=== PATIENT | female | born 1935 | race Caucasian/White ===

== ENCOUNTER 2016-07-01 14:12 | Outpatient (CLI) | payer MEDICARE, OTHER | END 2016-07-01 14:13 | disposition home or self-care (01) | DX: S72.142D Displaced intertrochanteric fracture of left femur, subsequent encounter for closed fracture with routine healing (principal) ==

== ENCOUNTER 2016-07-02 12:05 | Outpatient (CLI) | payer MEDICARE, OTHER | END 2016-07-02 12:06 | disposition home or self-care (01) | DX: M17.12 Unilateral primary osteoarthritis, left knee (principal) ==

== ENCOUNTER 2017-11-05 07:15 | Outpatient (CLI) | payer MEDICARE, OTHER ==
[2017-11-05 14:13] LABS: BASOPHILS % (AUTO) 1.3 %; EOSINOPHILS % (AUTO) 2.3 %; HGB - HEMOGLOBIN 12.8 g/dL (12.0-16.0); MEAN CORPUSCULAR HEMOGLOBIN 31.8 pg (27.0-31.0); MEAN CORPUSCULAR HGB CONC 33.7 g/dL (32.0-36.0); MEAN CORPUSCULAR VOLUME 94.5 fL (81.0-99.0); MEAN PLATELET VOLUME 8.2 fL (7.9-10.8); MONOCYTES % (AUTO) 9.2 %; NEUTROPHILS % (AUTO) 68.2 %; PLT - PLATELET COUNT 178 10^3/uL (130-450); RED BLOOD COUNT 4.04 10^6/uL (4.20-5.40); RED CELL DISTRIBUTION WIDTH 13.4 % (12.0-15.0); WHITE BLOOD COUNT 5.5 x10^3/uL (4.8-10.8)
[2017-11-05 14:15] LABS: ABNORMAL LYMPHS % (MANUAL) 0 %; BAND NEUTROPHILS % (MANUAL) 0 %
[2017-11-05 14:26] LABS: ALBUMIN 3.9 g/dL (3.2-5.5); ALBUMIN/GLOBULIN RATIO 1.4 (1.0-2.2); ALKALINE PHOSPHATASE 52 IU/L (42-121); ALT ALANINE AMINOTRANSFERASE 15 IU/L (10-60); AST ASPARTATE AMINOTRANSFERASE 19 IU/L (10-42); BILIRUBIN,TOTAL 0.8 mg/dL (0.2-1.0); BUN - BLOOD UREA NITROGEN 15 mg/dL (6-20); CALCIUM 9.1 mg/dL (8.5-10.3); CARBON DIOXIDE - CO2 26 mmol/L (21-32); CHLORIDE 108 mmol/L (101-111); CHOL/HDL RATIO 2.4 (<4.4); CHOLESTEROL 144 mg/dL; CREATININE 0.5 mg/dL (0.4-1.0); GFR - MDRD 118 (>89); GLUCOSE 84 mg/dL (70-100); HDL CHOLESTEROL 60 mg/dL; LDL CHOLESTEROL,CALCULATED 74 mg/dL; LDL/HDL RATIO 1.2 (<4.4); SODIUM 140 mmol/L (135-145); TOTAL PROTEIN 6.7 g/dL (6.7-8.2); VLDL CHOLESTEROL 10 mg/dL
[2017-11-05 14:49] LABS: BASOPHILS # (MANUAL) 0.1 10^3/uL (0-0.1); BASOPHILS % (MANUAL) 2 %; EOSINOPHILS # (MANUAL) 0.1 10^3/uL (0-0.7); LYMPHOCYTES # (MANUAL) 0.7 10^3/uL (1.5-3.5); LYMPHOCYTES % (MANUAL) 12 %; MONOCYTES # (MANUAL) 0.6 10^3/uL (0.0-1.0); NEUTROPHILS # (MANUAL) 4.1 10^3/uL (1.5-6.6); NEUTROPHILS % (MANUAL) 74 %
[2017-11-05 14:50] LABS: DIFFERENTIAL COMMENT MANUAL DIFFERENTIAL; PLATELET ESTIMATE, MANUAL NORMAL (130-450,000) (NORMAL); PLATELET MORPHOLOGY NORMAL APPEARANCE (NORMAL); RBC MORPHOLOGY (MULTIPLE) NORMAL APPEARANCE (NORMAL)
== END 2017-11-05 07:16 | disposition home or self-care (01) ==
LOC: LAB.WCP 07:15
PROVIDERS: ATTEND Family Medicine
DX: I10 Essential (primary) hypertension (principal); E55.9 Vitamin D deficiency, unspecified; E78.5 Hyperlipidemia, unspecified; E03.9 Hypothyroidism, unspecified; F32.9 Major depressive disorder, single episode, unspecified
CPT/HCPCS: 36415; 80053; 80061; 82306; 83721; 84443; 85025

== ENCOUNTER 2017-11-19 08:04 | Outpatient (CLI) | payer MEDICARE, OTHER ==
--- NOTE | 2017-11-19 16:35 | DEXA Report ---
Procedure Date: 11/19/2017 Accession Number: [id number] / [id number] Procedure: DEX - Dexa Spine and/or Hip CPT Code: FULL RESULT: EXAM: Dexa Spine and/or Hip DATE: 11/19/2017 8:50 AM CLINICAL HISTORY: BONE DISORDER,OSTEOPOROSIS TECHNIQUE: Dual energy x-ray absorptiometry (DXA) was performed on a [employer] System. Regions measured are the AP Spine, femoral neck, and if needed forearm. COMPARISON: 12/09/2015. In accordance with the International Society for Clinical Densitometry (ISCD) guidelines, data from previous exams may be reanalyzed using current recommendations and techniques. This is done to allow a more accurate basis for comparison with the current study. FINDINGS: The data for the lumbar spine is as follows: BMD (g/cm/cm) T-SCORE Z-SCORE REGION L1 0.851 -2.3 -0.1 L2 0.974 -1.9 0.3 L3 1.081 -1.0 1.2 L4 1.084 -1.0 1.2 TOTAL 1.011 -1.4 0.8 NOTE: All evaluable vertebrae are used for classification The data for the hip is as follows: BMD (g/cm/cm) T-SCORE Z-SCORE REGION Neck 0.650 -2.8 -0.3 TOTAL 0.596 -3.3 -0.8 NOTE: The femoral neck or total proximal femur, whichever is lowest, is used for classification. DXA RESULTS SUMMARY: Spine SCAN DATE AGE BMD CHANGE VS CHANGE VS PREVIOUS PREVIOUS % 9/19/2017 [age] 1.011 -0.050* -4.7* 12/09/2015 [age] 1[age]061 * Denotes significant change at the 95% confidence level. Denotes dissimilar scan types or analysis methods. DXA RESULTS SUMMARY: Hip SCAN DATE AGE BMD CHANGE VS CHANGE VS PREVIOUS PREVIOUS % [birth year][age]19[birth year]2017 82.4 0.596 -0.008 -1.3 12/09[birth year]2015 [age] 0[age]604 * Denotes significant change at the 95% confidence level. Denotes dissimilar scan types or analysis methods. IMPRESSION: THE WHO CLASSIFICATION BASED ON THE INTERNATIONAL REFERENCE STANDARD IS OSTEOPOROSIS. THE FRACTURE RISK IS HIGH. RECOMMENDATION: Patients with diagnosis of osteoporosis or osteopenia should have regular bone mineral density assessment. For those eligible for Medicare, routine testing is allowed once every 2 years. Testing frequency can be increased for patients who have rapidly progressing disease or for those who are receiving medical therapy to restore bone mass. COMMENT: World Health Organization (WHO) definitions for osteoporosis and osteopenia: NORMAL BMD: T-score at -1.0 or higher, fracture risk is low OSTEOPENIA BMD: T-score between -1.0 and -2.5, fracture risk is increased. OSTEOPOROSIS BMD: T-score at -2.5 or lower, fracture risk is high. National Osteoporosis Foundation recommends: 1. Obtain adequate dietary calcium (at least 1200 mg per day) and vitamin D (400-800 international units per day). 2. Participate, as appropriate, in regular weightbearing and muscle-strengthening exercise. 3. Avoid tobacco use and reduce alcohol and caffeine intake. 4. For more detailed information see the website at www.NOF.org.
== END 2017-11-19 08:05 | disposition home or self-care (01) ==
LOC: DI 08:04
PROVIDERS: ATTEND Family Medicine
DX: M81.0 Age-related osteoporosis without current pathological fracture (principal); M89.9 Disorder of bone, unspecified
CPT/HCPCS: 77080

== ENCOUNTER 2018-10-19 08:00 | Outpatient (CLI) | payer MEDICARE, OTHER ==
[2018-10-19 12:25] LABS: BASOPHILS # (AUTO) 0.1 10^3/uL (0.0-0.1); BASOPHILS % (AUTO) 0.8 %; EOSINOPHILS # (AUTO) 0.1 10^3/uL (0.0-0.7); EOSINOPHILS % (AUTO) 1.9 %; HGB - HEMOGLOBIN 12.2 g/dL (12.0-16.0); LYMPHOCYTES # (AUTO) 1.2 10^3/uL (1.5-3.5); LYMPHOCYTES % (AUTO) 18.5 %; MEAN CORPUSCULAR HGB CONC 31.9 g/dL (32.0-36.0); MEAN PLATELET VOLUME 10.1 fL (7.9-10.8); MONOCYTES # (AUTO) 0.6 10^3/uL (0.0-1.0); MONOCYTES % (AUTO) 9.3 %; NEUTROPHILS # (AUTO) 4.4 10^3/uL (1.5-6.6); NEUTROPHILS % (AUTO) 69.2 %; PLT - PLATELET COUNT 177 10^3/uL (130-450); RED BLOOD COUNT 3.94 10^6/uL (4.20-5.40); RED CELL DISTRIBUTION WIDTH 13.2 % (12.0-15.0); WHITE BLOOD COUNT 6.4 x10^3/uL (4.8-10.8)
[2018-10-19 12:53] LABS: CHLORIDE 109 mmol/L (101-111); SODIUM 140 mmol/L (135-145)
[2018-10-19 12:54] LABS: ALBUMIN 3.8 g/dL (3.2-5.5); ALBUMIN/GLOBULIN RATIO 1.2 (1.0-2.2); ALKALINE PHOSPHATASE 63 IU/L (42-121); ALT ALANINE AMINOTRANSFERASE 15 IU/L (10-60); AST ASPARTATE AMINOTRANSFERASE 17 IU/L (10-42); BILIRUBIN,TOTAL 0.6 mg/dL (0.2-1.0); BUN - BLOOD UREA NITROGEN 17 mg/dL (6-20); CALCIUM 9.7 mg/dL (8.5-10.3); CARBON DIOXIDE - CO2 23 mmol/L (21-32); CHOL/HDL RATIO 2.5 (<4.4); CHOLESTEROL 130 mg/dL; CREATININE 0.5 mg/dL (0.4-1.0); GFR - MDRD 117 (>89); GLUCOSE 98 mg/dL (70-100); HDL CHOLESTEROL 53 mg/dL; LDL CHOLESTEROL,CALCULATED 61 mg/dL; LDL/HDL RATIO 1.2 (<4.4); TOTAL PROTEIN 6.9 g/dL (6.7-8.2); VLDL CHOLESTEROL 16 mg/dL
== END 2018-10-19 08:01 | disposition home or self-care (01) ==
LOC: LAB.WCP 08:00
PROVIDERS: ATTEND Family Medicine
DX: I10 Essential (primary) hypertension (principal); E78.5 Hyperlipidemia, unspecified; E03.9 Hypothyroidism, unspecified
CPT/HCPCS: 36415; 80053; 80061; 83721; 84443; 85025

== ENCOUNTER 2019-04-14 11:47 | Emergency (ER) | payer MEDICARE, OTHER ==
--- NOTE | 2019-04-14 13:56 | XRAY Report ---
Reason: fall, R hip pain Procedure Date: 04/14/2019 Accession Number: [id number] / [id number] Procedure: XR - Hip w/Pelvis 2-3V RT CPT Code: Addended Final Report FULL RESULT: EXAM: RIGHT HIP RADIOGRAPHY EXAM DATE: 04/14/2019 01:33 PM. CLINICAL HISTORY: Fall, right hip pain. COMPARISON: HIP W/PELVIS 2-3V LT 07/01/2016 2:25 PM. TECHNIQUE: 2 views. FINDINGS: Bones: The bones are qualitatively osteopenic; this limits evaluation for underlying fractures or masses. Within these limitations, no convincing fracture is identified. Evaluation of the femoral neck is further limited by positioning. Joints: Interval left total hip arthroplasty, partially visualized. No dislocation on the right. Soft Tissues: Prominent stool burden seen projecting over the pelvis. IMPRESSION: Limited exam due to osteopenia and positioning with no convincing fracture identified. Constipation. RADIA ADDENDUM: 04/14/19 14:49 There are fractures of the right superior and inferior pubic rami, new compared to 2017, and likely acute. CRITICAL RESULT: The findings were discussed with Dr. Bauer on 04/14/2019 at 12:47 PM.
--- NOTE | 2019-04-14 14:17 | ED Physician Documentation ---
History of Present Illness - Stated complaint Stated Complaint: R LEG PAIN FROM FALL - Chief complaint Chief Complaint: Ext Problem - History obtained from History obtained from: Patient - History of Present Illness Timing: Yesterday Pain level max: 5 Pain level now: 5 - Additonal information Additional information: 83-year-old female presents to the emergency department after a trip and fall last night. She states that she is having pain in her left wrist and right hip. The pain in the right hip is only with ambulation. Left wrist is worse with movement and better with rest. No head injury. No neck or back pain. No headache. No loss of consciousness. No focal neurological deficits. 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 Cardiovascular: Pacemaker HEENT: Cataracts, Tonsil/Adenoidectomy - Present Medications Home Medications: Ambulatory Orders Medication Instructions Recorded Confirmed Aspirin [Aspir 81] 81 mg PO QPM 03/25/15 08/30/15 Carvedilol 6.25 mg PO BID 03/25/15 08/30/15 Levothyroxine [Synthroid] 100 mcg PO DAILY 03/25/15 08/30/15 Calcium Carbonate [Calcium] 600 mg PO BID 03/26/15 08/30/15 Clopidogrel [Plavix] 75 mg PO DAILY 08/30/15 09/01/15 Acetaminophen/Cod 300/30 [Tylenol 1 - 2 tab PO QID MDD PAIN 09/01/15 09/01/15 #3] Alendronate [Fosamax] 70 mg PO Q7D 09/01/15 09/01/15 Atorvastatin Calcium 10 mg PO QPM 09/01/15 09/01/15 Fluticasone [Flonase] 1 sprays LINDY BID 09/01/15 09/01/15 - Allergies Allergies/Adverse Reactions: Allergies Allergy/AdvReac Type Severity Reaction Status Date / Time meperidine HCl * Allergy Unknown Verified 03/25/15 19:21 [From Demerol] Penicillins Allergy Unknown Verified 03/25/15 19:21 Sulfa (Sulfonamide Allergy Unknown Verified 03/25/15 19:20 Antibiotics) fragrences Allergy Unknown Uncoded 03/25/15 19:21 - Social History Does the pt smoke?: No Smoking Status: Never smoker Does the pt drink ETOH?: Yes Does the pt have substance abuse?: No PD ED PE NORMAL - Vitals Vital signs reviewed: Yes - General General: Alert and oriented X 3, No acute distress, Well developed/nourished - HEENT HEENT: Atraumatic, PERRL, Moist mucous membranes - Neck Neck: Supple, no meningeal sign, No bony TTP - Cardiac Cardiac: RRR, Strong equal pulses - Respiratory Respiratory: No respiratory distress, Clear bilaterally - Abdomen Abdomen: Soft, Non tender, Non distended - Back Back: No spinal TTP - Derm Derm: Warm and dry - Extremities Extremities: Other (Tender palpation over the right hip. Pain with internal rotation. No shortening. Neurovascular intact. Also tender to palpation over the dorsum of the left wrist with mild ecchymosis and swelling. Neurovascular intact.) - Neuro Neuro: Alert and oriented X 3 - Psych Psych: Normal mood, Normal affect Results - Vitals Vitals: Vital Signs - 24 hr 04/14/19 04/14/19 12:07 15:08 Temperature 36.6 C 36.9 C Heart Rate 75 81 Respiratory 18 16 Rate Blood Pressure 107/69 113/82 H O2 Saturation 99 99 Oxygen O2 Source [With Activity] Room air O2 Source [Without Activity] Room air O2 Source Room air - Rads (name of study) R hip xray Radiology: Prelim report reviewed, EMP read contemporaneously, See rad report (There are fractures of the right superior and inferior pubic rami, new compared to 2017, and likely acute. ) L wrist xray Radiology: Prelim report reviewed, EMP read contemporaneously, See rad report (Advanced degenerative changes of the first carpometacarpal articulation with question of acute injury in this region. Please correlate for focal tenderness at the base of the thumb. ) PD MEDICAL DECISION MAKING - ED course Complexity details: reviewed results, re-evaluated patient, considered differential, d/w patient ED course: 83-year-old female presents to the emergency department after a fall. She has a right superior and inferior pubic rami fracture. No acute fractures on wrist x- ray. Using the wrist well. Placed in a Velcro splint for this. She will utilize a walker for home. The pubic ramus fractures are nonoperative. We will have her follow-up with her doctor and orthopedics for further evaluation. Patient states that she has pain medication for home. Patient and family counseled regarding signs and symptoms for which I believe and urgent re- evaluation would be necessary. Patient with good understanding of and agreement to plan and is comfortable going home at this time This document was made in part using voice recognition software. While efforts are made to proofread this document, sound alike and grammatical errors may occur. Departure - Departure Disposition: 01 Home, Self Care Clinical Impression: Contusion of left wrist Qualifiers: Encounter type: initial encounter Qualified Code(s): S60.212A - Contusion of left wrist, initial encounter Fracture of pubic ramus Qualifiers: Encounter type: initial encounter Fracture type: closed Laterality: right Qualified Code(s): S32.591A - Other specified fracture of right pubis, initial encounter for closed fracture Condition: Good Instructions: ED Contusion Upper Ext, ED Fx Pelvis Follow-Up: Denice Ring DO [Primary Care Provider] - [facility] [Provider Group] - Within 1 week Comments: Return if you worsen. Follow-up with your doctor for further care. You have a pubic ramus fracture on the right. You need to use her walker at all times to help you get around at home. Discharge Date/Time: 04/14/19 15:19
--- NOTE | 2019-04-14 14:46 | XRAY Report ---
Reason: fall, wrist pain Procedure Date: 04/14/2019 Accession Number: [id number] / [id number] Procedure: XR - Wrist 4 View LT CPT Code: Final Report FULL RESULT: EXAM: LEFT WRIST RADIOGRAPHY EXAM DATE: 04/14/2019 02:31 PM. CLINICAL HISTORY: Fall, wrist pain. COMPARISON: HAND 2 VIEW BILAT 04/13/2018 11:35 AM. TECHNIQUE: 4 views. FINDINGS: Bones: The bones are qualitatively osteopenic; this limits evaluation for underlying fractures or masses. There is an apparent cortical step-off along the medial aspect of the base of the first metacarpal, fracture of the base of the first metacarpal near the advanced degenerative changes would be difficult to exclude. No other fracture is seen. Joints: Advanced degenerative changes of the first carpometacarpal articulation are noted. Soft Tissues: Normal. No soft tissue swelling. IMPRESSION: Advanced degenerative changes of the first carpometacarpal articulation with question of acute injury in this region. Please correlate for focal tenderness at the base of the thumb. RADIA
[2019-04-14 15:11] VITALS: BP 113/82
== END 2019-04-14 15:19 | disposition home or self-care (01) ==
LOC: ED 11:47
DX: S32.511A Fracture of superior rim of right pubis, initial encounter for closed fracture (principal); S32.591A Other specified fracture of right pubis, initial encounter for closed fracture; S60.212A Contusion of left wrist, initial encounter; W01.0XXA Fall on same level from slipping, tripping and stumbling without subsequent striking against object, initial encounter; I10 Essential (primary) hypertension
CPT/HCPCS: 99284

== ENCOUNTER 2019-10-03 18:36 | Outpatient (CLI) | payer MEDICARE, OTHER | END 2019-10-03 18:37 | disposition critical access hospital (66) | LOC: EMS 18:36 | PROVIDERS: ATTEND Surgery | DX: M25.511 Pain in right shoulder (principal); M25.551 Pain in right hip; W18.39XA Other fall on same level, initial encounter; Y92.000 Kitchen of unspecified non-institutional (private) residence as the place of occurrence of the external cause | CPT/HCPCS: A0425; A0429 ==

== ENCOUNTER 2019-10-03 18:57 | Inpatient (IN) | payer MEDICARE, OTHER ==
[2019-10-03] MEDS ORDERED: MORPHINE 2 MG/ML CARPUJECT IVP STA ×2 (19:05→19:58)
--- NOTE | 2019-10-03 19:08 | ED Physician Documentation ---
PD HPI LOWER EXT INJURY - Stated complaint Stated Complaint: GLF - History obtained from History obtained from: Patient - History of Present Illness PD HPI LOW EXT INJURY LOCATION: Right Where injury occurred: Home Timing - onset: Today (This is a carlos 84-year-old woman with history of cardiomyopathy with an AICD in place. Reportedly had a garret EF at some point 15% but since has rebounded. She lost her balance and had a mechanical fall into a dresser and then onto her right side injuring the right arm and right hip. She was able to briefly bear weight afterwards, says the pain is not too severe. 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 Cardiovascular: Pacemaker HEENT: Cataracts, Tonsil/Adenoidectomy - Present Medications Home Medications: Ambulatory Orders Medication Instructions Recorded Confirmed Aspirin [Aspir 81] 81 mg PO QPM 03/25/15 06/30/19 Carvedilol 12.5 mg PO BID 03/25/15 06/30/19 Levothyroxine [Synthroid] 100 mcg PO DAILY 03/25/15 06/30/19 Calcium Carbonate [Calcium] 600 mg PO BID 03/26/15 06/30/19 Clopidogrel [Plavix] 75 mg PO DAILY 08/30/15 06/30/19 Acetaminophen/Cod 300/30 [Tylenol 1 - 2 tab PO QID MDD PAIN 09/01/15 06/30/19 #3] Alendronate [Fosamax] 70 mg PO Q7D 09/01/15 06/30/19 Atorvastatin Calcium 10 mg PO QPM 09/01/15 06/30/19 Fluticasone [Flonase] 1 sprays LINDY BID 09/01/15 06/30/19 Lisinopril [Zestril] 2.5 mg PO DAILY 06/30/19 06/30/19 - Allergies Allergies/Adverse Reactions: Allergies Allergy/AdvReac Type Severity Reaction Status Date / Time levofloxacin [From Levaquin] Allergy Unknown Verified 10/03/19 19:14 meperidine HCl * Allergy Unknown Verified 10/03/19 19:14 [From Demerol] Penicillins Allergy Unknown Verified 10/03/19 19:14 perfume Allergy Unknown Verified 10/03/19 20:28 Sulfa (Sulfonamide Allergy Unknown Verified 10/03/19 19:14 Antibiotics) - Social History Does the pt smoke?: No Smoking Status: Never smoker Does the pt drink ETOH?: Yes Does the pt have substance abuse?: No PD ED PE NORMAL - Vitals Vital signs reviewed: Yes - General General: Alert and oriented X 3, No acute distress - HEENT HEENT: PERRL, EOMI - Neck Neck: Supple, no meningeal sign, No bony TTP - Cardiac Cardiac: Other (Regular with frequent extrasystoles) - Respiratory Respiratory: No respiratory distress, Clear bilaterally - Abdomen Abdomen: Soft, Non tender - Back Back: No CVA TTP, No spinal TTP - Derm Derm: Normal color, Warm and dry - Extremities Extremities: Other (Right arm is tender the upper humerus but actually has pretty good range of motion. The hip is profoundly tender and shortened with externally rotated.) - Neuro Neuro: Alert and oriented X 3, Normal speech - Psych Psych: Normal mood, Normal affect Results - Vitals Vitals: Vital Signs - 24 hr 10/03/19 10/03/19 19:15 19:21 Temperature 36.5 C Heart Rate 76 71 Respiratory 18 Rate Blood Pressure 147/92 H 147/92 H O2 Saturation 100 95 Oxygen O2 Source [With Activity] Room air O2 Source [Without Activity] Room air O2 Source Room air - Labs Labs: Laboratory Tests 10/03/19 10/03/19 10/03/19 19:44 19:44 19:44 WBC 11.0 H RBC 4.17 L Hgb 12.9 Hct 39.7 MCV 95.2 MCH 30.9 MCHC 32.5 RDW 13.1 Plt Count 182 MPV 9.3 Neut # (Auto) 9.0 H Lymph # (Auto) 1.0 L [place] # (Auto) 0.8 Eos # (Auto) 0.1 Baso # (Auto) 0.1 Absolute Nucleated RBC 0.00 Nucleated RBC % 0.0 PT 12.9 H INR 1.1 Sodium 139 Potassium 3.9 Chloride 107 Carbon Dioxide 23 Anion Gap 9.0 BUN 17 Creatinine 0.5 Estimated GFR (MDRD) 117 Glucose 115 H Calcium 9.6 Total Bilirubin 0.6 AST 20 ALT 20 Alkaline Phosphatase 52 Total Protein 6.9 Albumin 4.2 Globulin 2.7 Albumin/Globulin Ratio 1.6 Lipase 41 Blood Type Antibody Screen 10/03/19 19:55 WBC RBC Hgb Hct MCV MCH MCHC RDW Plt Count MPV Neut # (Auto) Lymph # (Auto) [place] # (Auto) Eos # (Auto) Baso # (Auto) Absolute Nucleated RBC Nucleated RBC % PT INR Sodium Potassium Chloride Carbon Dioxide Anion Gap BUN Creatinine Estimated GFR (MDRD) Glucose Calcium Total Bilirubin AST ALT Alkaline Phosphatase Total Protein Albumin Globulin Albumin/Globulin Ratio Lipase Blood Type O POSITIVE Antibody Screen NEGATIVE - Rads (name of study) X-rays of the right humerus and hip Radiology: EMP read contemporaneously (Right humerus was negative, the right hip appears fractured and I actually think it is a clear fracture the radiologist was less sure) PD MEDICAL DECISION MAKING - ED course ED course: 84-year-old woman with history of cardiomyopathy although improved on more recent echoes presents after a simple ground-level fall onto her right arm and hip. She does appear to have a hip fracture on x-ray and the case was discussed by phone with Dr. Hendrix, the on-call surgeon who recommends that we have anesthesia come by and assess her preoperatively and to do a fascia iliac a block and I spoke with Benjie Lebron around 7:45 PM who will come in and see the patient. Departure - Departure Disposition: 66 [facility] DC/Xfer Clinical Impression: AICD (automatic cardioverter/defibrillator) present Closed right hip fracture Qualifiers: Encounter type: initial encounter Qualified Code(s): S72.001A - Fracture of unspecified part of neck of right femur, initial encounter for closed fracture Condition: Serious Discharge Date/Time: 10/03/19 21:58
[2019-10-03 19:56] LABS: BASOPHILS # (AUTO) 0.1 10^3/uL (0.0-0.1); BASOPHILS % (AUTO) 0.5 %; EOSINOPHILS # (AUTO) 0.1 10^3/uL (0.0-0.7); EOSINOPHILS % (AUTO) 1.3 %; HGB - HEMOGLOBIN 12.9 g/dL (12.0-16.0); LYMPHOCYTES % (AUTO) 9.5 %; MEAN CORPUSCULAR HEMOGLOBIN 30.9 pg (27.0-31.0); MEAN CORPUSCULAR HGB CONC 32.5 g/dL (32.0-36.0); MEAN CORPUSCULAR VOLUME 95.2 fL (81.0-99.0); MEAN PLATELET VOLUME 9.3 fL (7.9-10.8); MONOCYTES # (AUTO) 0.8 10^3/uL (0.0-1.0); MONOCYTES % (AUTO) 6.8 %; NEUTROPHILS % (AUTO) 81.4 %; PLT - PLATELET COUNT 182 10^3/uL (130-450); RED BLOOD COUNT 4.17 10^6/uL (4.20-5.40); RED CELL DISTRIBUTION WIDTH 13.1 % (12.0-15.0)
--- NOTE | 2019-10-03 19:57 | XRAY Report ---
PROCEDURE: Hip w/Pelvis 2-3V RT INDICATIONS: hip inj TECHNIQUE: AP pelvis with lateral view(s) of the right hip(s). COMPARISON: 04/14/2019 FINDINGS: Bones: Patient is status post prior left total hip arthroplasty. Right hip is internally rotated, whi ch limits the evaluation of right femoral neck. There is suggestion of superior migration of proximal femoral shaft in relation to femoral head concerning for a right femoral neck fracture. No evidence of avascular necrosis of right femoral head. 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 Healed superior and inferior pubic rami fractures are seen. Pelvic ring appears intac t. No suspicious bony lesions. Soft tissues: The visualized bowel gas pattern is normal. No suspicious soft tissue calcifications. IMPRESSION: 1. Limited evaluation of right femoral neck. Superior migration of femoral shaft in relation to right femoral head concerning for right femoral neck fracture. Consider CT of pelvis for further evaluatio n if indicated. 2. Old healed right superior and inferior pubic rami fracture. Reviewed by: Eddie Hopson MD on 10/03/2019 7:56 PM PDT Approved by: Eddie Hopson MD on 10/03/2019 7:56 PM PDT Station ID: [id number]
--- NOTE | 2019-10-03 19:58 | XRAY Report ---
PROCEDURE: Humerus RT INDICATIONS: arm inj TECHNIQUE: 2 views of the humerus were acquired. COMPARISON: None FINDINGS: Bones: No fractures or dislocations. No suspicious bony lesions. Soft tissues: No suspicious soft tissue calcifications. IMPRESSION: No acute humeral fracture or dislocation. Reviewed by: Eddie Hopson MD on 10/03/2019 7:57 PM PDT Approved by: Eddie Hopson MD on 10/03/2019 7:57 PM PDT Station ID: [id number]
[2019-10-03 20:11] LABS: ALBUMIN 4.2 g/dL (3.2-5.5); ALBUMIN/GLOBULIN RATIO 1.6 (1.0-2.2); BILIRUBIN,TOTAL 0.6 mg/dL (0.2-1.0); CALCIUM 9.6 mg/dL (8.5-10.3); CREATININE 0.5 mg/dL (0.4-1.0); TOTAL PROTEIN 6.9 g/dL (6.7-8.2)
[2019-10-03 20:13] LABS: INR 1.1 (0.8-1.2); PT - PROTHROMBIN TIME 12.9 secs (9.9-12.6)
[2019-10-03] MEDS ORDERED: ONDANSETRON ODT 4 MG TABLET TL PRN (20:14)
[2019-10-03] MEDS ORDERED: SODIUM CHLORIDE FLUSH 0.9% 10 ML SYRINGE IVP PRN (20:14)
[2019-10-03] MEDS ORDERED: ONDANSETRON 4 MG/2 ML VIAL IVP PRN (20:14)
[2019-10-03] MEDS ORDERED: ACETAMINOPHEN 325 MG TABLET PO PRN (20:14)
--- NOTE | 2019-10-03 20:23 | HISTORY & PHYSICAL EXAMINATION ---
Chief Complaint - Chief Complaint Chief Complaint: Right hip pain History of Present Illness - Admitted From Admitted From:: Home - History Obtained From Records Reviewed: Yes History obtained from: Patient, Daughter, EMR, ER Physician - History of Present Illness HPI Comment/Other: This is a very pleasant 84-year-old female with a past medical history significant for cardiomyopathy status post ICD placement who now has a preserved ejection fraction, hypothyroidism, history of stroke, osteoarthritis, prior history of left hip arthroplasty who presents today after having a fall at home. She states she was picking up a phone book when she fell on her right side and hit her right hip and right shoulder. He feels like her right leg gave out pr ior to her fall. She denied any syncope, chest pain, dizziness, headedness prior to the fall. The pain is located in the right groin . It is currently controlled after she received morphine in the emergency room and and a fascial illiaca block. She reports she has a history of osteoporosis and was previously on Fosamax but is now on Prolia and has had one dose. She had a prior left hip fracture and underwent intramedullary rodding with hip nail placement at our facility back in 2015. 1 year later, she had a left total hip arthroplasty at [facility]. She states that at baseline, she ambulates with a cane. She lives at home alone and is independent with her ADLs. She does not walk up a flight of stairs due to mobility issues but she reports no chest pain or dyspnea with any activity and she is able to walk across her one-story home without any problems. She has not had a stress test recently. She reports having angiograms in the past and denies a history of coronary artery disease. She denies taking Plavix but is taking 3 tablets of 81 mg aspirin a day. In the emergency department, imaging of the right hip was suggestive of a right femoral neck fracture. X-ray of the right humerus revealed no fracture. Given these findings, medicine was consulted for admission. I did discuss goals of care with the patient and her daughter and she would like to be a DNR. 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 Her father in his 50s from myocardial infarction. Living arrangement: At home Living Situation: Alone Social History Notes: She currently lives at home alone. Her a few months ago. She does not smoke or drink alcohol. 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 - POLST Patient has POLST: No Meds/Allgy - Home Medications Home Medications: Ambulatory Orders Medication Instructions Recorded Confirmed Aspirin [Aspir 81] 81 mg PO QPM 03/25/15 06/30/19 Carvedilol 12.5 mg PO BID 03/25/15 06/30/19 Levothyroxine [Synthroid] 100 mcg PO DAILY 03/25/15 06/30/19 Calcium Carbonate [Calcium] 600 mg PO BID 03/26/15 06/30/19 Clopidogrel [Plavix] 75 mg PO DAILY 08/30/15 06/30/19 Acetaminophen/Cod 300/30 [Tylenol 1 - 2 tab PO QID MDD PAIN 09/01/15 06/30/19 #3] Alendronate [Fosamax] 70 mg PO Q7D 09/01/15 06/30/19 Atorvastatin Calcium 10 mg PO QPM 09/01/15 06/30/19 Fluticasone [Flonase] 1 sprays LINDY BID 09/01/15 06/30/19 Lisinopril [Zestril] 2.5 mg PO DAILY 06/30/19 06/30/19 - Allergies Allergies/Adverse Reactions: Allergies Allergy/AdvReac Type Severity Reaction Status Date / Time levofloxacin [From Levaquin] Allergy Unknown Verified 10/03/19 19:14 meperidine HCl * Allergy Unknown Verified 10/03/19 19:14 [From Demerol] Penicillins Allergy Unknown Verified 10/03/19 19:14 perfume Allergy Unknown Verified 10/03/19 20:28 Sulfa (Sulfonamide Allergy Unknown Verified 10/03/19 19:14 Antibiotics) Review of Systems - Constitutional Constitutional: denies: Fatigue, Fever, Chills, Weakness - Ears, Nose & Throat Ears, Nose & Throat: denies: Nasal discharge, Nasal congestion, Sore throat - Cardiovascular Cariovascular: denies: Palpitations, Chest pain, Edema, Lightheadedness, Syncope, Exertional dyspnea, Decr. exercise tolerance - Respiratory Respiratory: denies: Cough, SOB at rest, SOB with exertion - Gastrointestinal Gastrointestinal: denies: Abdominal pain, Nausea, Vomiting - Genitourinary Genitourinary: denies: Dysuria, Frequency - Musculoskeletal Musculoskeletal: reports: Stiffness, Limited range of motion, Joint pain - Integumentary Integumentary: denies: Rash - Neurological Neurological: denies: General weakness, Focal weakness, Dizziness, Numbness, Memory problems - Hematologic/Lymphatic Hematologic/Lymphatic: denies: Anemia, Bleeding tendencies - All Other Systems All Other Systems: reports: Reviewed and negative Prior Level of Functionality: She lives alone and is independent with her ADLs. She ambulates with a cane at baseline. Exam - Vital Signs Reviewed Vital Signs: Yes Vital Signs: Vital Signs x48h Temp Pulse Resp BP Pulse Ox 10/03/19 19:21 71 147/92 H 95 10/03/19 19:15 36.5 C 76 18 147/92 H 100 - Physical Exam General Appearance: positive: No acute distress, Alert Eyes Bilateral: positive: Normal inspection ENT: positive: ENT inspection nml Neck: positive: Nml inspection Respiratory: positive: No respiratory distress. negative: Wheezes, Rales, Rhonchi Cardiovascular: positive: Regular rate & rhythm, No murmur. negative: Tachycardia, Bradycardia, Systolic murmur Abdomen: positive: Non-tender, No distention. negative: Tenderness, Guarding, Rebound Skin: positive: Other (No erythema over the right hip.) Extremities: positive: No pedal edema, Other (She is able to move her left lower extremity without difficulty. Movement in the right lower extremity is limited secondary to pain at the right hip. The right lower extremity is externally rotated and shortened. Pulses intact distally of the right lower extremity.) Neurologic/Psychiatric: positive: Oriented x3, Other (Sensation is decreased over the medial aspect of the right thigh otherwise grossly intact.). negative: Disoriented to person, Disoriented to place, Disoriented to time Conclusion/Plan - Problem List (1) Fracture of femoral neck, right, closed Conclusion/Plan: Concern for right femoral neck fracture on imaging after fall. She will be n.p.o. at midnight for OR tomorrow with orthopedics. We will give her heparin for DVT prophylaxis tonight. Pain control with Morphine IV and tylenol as needed. She has been typed and screened and we will monitor her for bleeding postoperatively. Hold aspirin. PT and OT will be consulted postoperatively as w ell as social work for disposition planning. Qualifiers: Encounter type: initial encounter Qualified Code(s): S72.001A - Fracture of unspecified part of neck of right femur, initial encounter for closed fracture (2) Preop cardiovascular exam Conclusion/Plan: History of cardiomyopathy with ICD in place. Her most recent echocardiogram reveals a preserved ejection fraction. There is currently no concern for anguna or heart failure. Her EKG reveals a paced rhythm. Her functional status is limited due to osteoarthritis. Given her history of cardiomyopathy, would recommend obtaining an echocardiogram preoperatively. If her ejection fraction is preserved and there is no significant valvular disease, she will be medically optimized for surgical intervention. Her Mylse perioperative risk for myocardial infarction or cardiac arrest is 0.9%. We will continue her home beta catrachita perioperatively. (3) History of cardiomyopathy Conclusion/Plan: She is a history what appears to be idiopathic cardiomyopathy with ejection fraction of 15% in the past. Most recent echocardiogram revealed a preserved ejection fraction. She is an ICD in place. She currently appears euvolemic on exam. We will check an echocardiogram preoperatively. We will continue her home medications. (4) AICD (automatic cardioverter/defibrillator) present Conclusion/Plan: EKG reveals a paced rhythm. Monitor on telemetry. (5) HTN (hypertension) Conclusion/Plan: >She is currently normotensive. We will continue her home carvedilol and lisinopril. (6) History of stroke Conclusion/Plan: She has history of stroke for which she is on aspirin and Lipitor. We will continue Lipitor but hold aspirin given the surgical intervention. (7) Hypothyroidism Conclusion/Plan: Stable. Continue Synthroid. - Lab Results Lab results reviewed: Yes Fish Bones: 10/03/19 19:44 10/03/19 19:44 - Diagnostic Imaging Results Diagnostic Imaging Results: positive: Final report reviewed - EKG Results EKG Interpreted Independently: Yes EKG Findings: EKG shows a paced rhythm which is unchanged compared to prior EKG. Core Measures - Anticipated LOS I expect patient to be DC'd or transferred within 96 hours.: Yes - Issues Hospital Issues and Management Plan: 84-year-old female with right femoral neck fracture. Will go to the OR tomorrow with orthopedics and consult PT and OT. Will hope to discharge in 2 to 3 days to skilled nurse facility. - DVT/VTE - Prophylaxis VTE/DVT Device ordered at admit?: Yes VTE/DVT Prophylaxis med ordered at admit?: Yes
[2019-10-03] MEDS ORDERED: ROPIVACAINE 0.2% PF 20ML VIAL ONE (20:47)
--- NOTE | 2019-10-03 21:26 | PROCEDURE REPORT ---
Hospitalist Procedure Note - Procedure Note Procedure Note: fascial illiaca block requested by orthopedic Dr Draper. Block done in the er. ANIMAL ATTENDANT present to assist. US guidance used. Total 40ml ropivacain 0.2% injected in small increments after each negative aspiration. Standard monitors applied for vital sign monitoring. Patient tolerated the procedure well.
--- NOTE | 2019-10-03 21:35 | HISTORY & PHYSICAL EXAMINATION ---
HPI - Admitted From Admitted from: ED - History Obtained From History obtained from: Patient Exam limitations: No limitations - History of Present Illness Severity at the worst: reports: Severe Pain Quality: reports: Sharp Timing: reports: Abrupt onset (This is an 84-year-old woman who lives at home. She is ambulatory at home and uses a walking cane usually. This afternoon she was standing, looking at a phone book, when she fell onto her right side. She states it felt like her right leg just gave way. She normally has a life alert but was not wearing it. She denies chest pain, shortness of breath, syncope or dizziness associated with the fall. She is a . She does have a sister nearby where she lives. She has had previous left hip and femur problems. About 3 to 4 years ago she had a intramedullary mamadou with hip nail inserted and this was converted about a year ago to a left total hip arthroplasty. She is mostly in indoor ambulator but does get around outside as well. She complains of right groin and right upper thigh pain. Following the fall, she was unable to bear weight but was able to slide on the floor to reach the telephone and ca ll 911. She has mild pain to her shoulder but no other complaints of pain other than the right hip and upper thigh region.) PMH/PSH - Past Medical History Cardiovascular: positive: Hypertension, High cholesterol, Other (She has a his tory of cardiomyopathy and apparently her ejection fraction has improved considerably over the past 4 to 5 years. She denies use of Plavix although her home medications suggest that she does use Plavix. 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 Cardiovascular: positive: Pacemaker HEENT: positive: Cataracts, Tonsil/Adenoidectomy Social & Family Hx - Social History Does the pt smoke?: No Smoking Status: Never smoker Does the pt drink ETOH?: Yes Does the pt have substance abuse?: No - POLST Patient has POLST: No Meds/Allgy - Home Medications Home Medications: Ambulatory Orders Medication Instructions Recorded Confirmed Aspirin [Aspir 81] 81 mg PO QPM 03/25/15 06/30/19 Carvedilol 12.5 mg PO BID 03/25/15 06/30/19 Levothyroxine [Synthroid] 100 mcg PO DAILY 03/25/15 06/30/19 Calcium Carbonate [Calcium] 600 mg PO BID 03/26/15 06/30/19 Clopidogrel [Plavix] 75 mg PO DAILY 08/30/15 06/30/19 Acetaminophen/Cod 300/30 [Tylenol 1 - 2 tab PO QID MDD PAIN 09/01/15 06/30/19 #3] Alendronate [Fosamax] 70 mg PO Q7D 09/01/15 06/30/19 Atorvastatin Calcium 10 mg PO QPM 09/01/15 06/30/19 Fluticasone [Flonase] 1 sprays LINDY BID 09/01/15 06/30/19 Lisinopril [Zestril] 2.5 mg PO DAILY 06/30/19 06/30/19 - Allergies Allergies/Adverse Reactions: Allergies Allergy/AdvReac Type Severity Reaction Status Date / Time levofloxacin [From Levaquin] Allergy Unknown Verified 10/03/19 19:14 meperidine HCl * Allergy Unknown Verified 10/03/19 19:14 [From Demerol] Penicillins Allergy Unknown Verified 10/03/19 19:14 perfume Allergy Unknown Verified 10/03/19 20:28 Sulfa (Sulfonamide Allergy Unknown Verified 10/03/19 19:14 Antibiotics) Review of Systems - Cardiovascular Cariovascular: reports: Other (She has a permanent defibrillator) - Musculoskeletal Musculoskeletal: reports: Joint pain (See history of present illness; right hip and upper thigh pain) Exam - Vital Signs Vital Signs: Vital Signs x48h Temp Pulse Resp BP Pulse Ox 10/03/19 19:21 71 147/92 H 95 10/03/19 19:15 36.5 C 76 18 147/92 H 100 - Physical Exam General Appearance: positive: Alert, Mild distress Eyes Bilateral: positive: Normal inspection, EOMI ENT: positive: ENT inspection nml Neck: positive: Nml inspection Respiratory: positive: Chest non-tender Cardiovascular: positive: Regular rate & rhythm Peripheral Pulses: positive: 1+ Abdomen: positive: Non-tender Skin: positive: Color nml Extremities: positive: Other (She has shortening and external rotation deformity right leg with marked pain at gentle rotation of right thigh. There is no hematoma about right hip, skin is intact. Her right knee is nontender and there is no effusion or synovitis to right knee. Both shoulders show mild decrease in motion and no pain. Left lower extremity shows healed surgical scars to the left hip region, no pain with movement or deformity left leg.) Neurologic/Psychiatric: positive: Oriented x3, Motor nml, Sensation nml Results - Lab Results Fish Bones: 10/03/19 19:44 10/03/19 19:44 Other Lab Results: Lab Results x24hrs 10/03/19 10/03/19 10/03/19 Range/Units 19:55 19:44 19:44 WBC (4.8-10.8) x10^3/uL RBC (4.20-5.40) 10^6/uL Hgb (12.0-16.0) g/dL Hct (37.0-47.0) % MCV (81.0-99.0) fL MCH (27.0-31.0) pg MCHC (32.0-36.0) g/dL RDW (12.0-15.0) % Plt Count (130-450) 10^3/uL MPV (7.9-10.8) fL Neut # (Auto) (1.5-6.6) 10^3/uL Lymph # (Auto) (1.5-3.5) 10^3/uL Barber # (Auto) (0.0-1.0) 10^3/uL Eos # (Auto) (0.0-0.7) 10^3/uL Baso # (Auto) (0.0-0.1) 10^3/uL Absolute Nucleated RBC x10^3/uL Nucleated RBC % /100WBC PT 12.9 H (9.9-12.6) secs INR 1.1 (0.8-1.2) Sodium 139 (135-145) mmol/L Potassium 3.9 (3.5-5.0) mmol/L Chloride 107 (101-111) mmol/L Carbon Dioxide 23 (21-32) mmol/L Anion Gap 9.0 (6-13) BUN 17 (6-20) mg/dL Creatinine 0.5 (0.4-1.0) mg/dL Estimated GFR (MDRD) 117 (>89) Glucose 115 H (70-100) mg/dL Calcium 9.6 (8.5-10.3) mg/dL Total Bilirubin 0.6 (0.2-1.0) mg/dL AST 20 (10-42) IU/L ALT 20 (10-60) IU/L Alkaline Phosphatase 52 (42-121) IU/L Total Protein 6.9 (6.7-8.2) g/dL Albumin 4.2 (3.2-5.5) g/dL Globulin 2.7 (2.1-4.2) g/dL Albumin/Globulin Ratio 1.6 (1.0-2.2) Lipase 41 (22-51) U/L Blood Type O POSITIVE Antibody Screen NEGATIVE 10/03/19 Range/Units 19:44 WBC 11.0 H (4.8-10.8) x10^3/uL RBC 4.17 L (4.20-5.40) 10^6/uL Hgb 12.9 (12.0-16.0) g/dL Hct 39.7 (37.0-47.0) % MCV 95.2 (81.0-99.0) fL MCH 30.9 (27.0-31.0) pg MCHC 32.5 (32.0-36.0) g/dL RDW 13.1 (12.0-15.0) % Plt Count 182 (130-450) 10^3/uL MPV 9.3 (7.9-10.8) fL Neut # (Auto) 9.0 H (1.5-6.6) 10^3/uL Lymph # (Auto) 1.0 L (1.5-3.5) 10^3/uL Barber # (Auto) 0.8 (0.0-1.0) 10^3/uL Eos # (Auto) 0.1 (0.0-0.7) 10^3/uL Baso # (Auto) 0.1 (0.0-0.1) 10^3/uL Absolute Nucleated RBC 0.00 x10^3/uL Nucleated RBC % 0.0 /100WBC PT (9.9-12.6) secs INR (0.8-1.2) Sodium (135-145) mmol/L Potassium (3.5-5.0) mmol/L Chloride (101-111) mmol/L Carbon Dioxide (21-32) mmol/L Anion Gap (6-13) BUN (6-20) mg/dL Creatinine (0.4-1.0) mg/dL Estimated GFR (MDRD) (>89) Glucose (70-100) mg/dL Calcium (8.5-10.3) mg/dL Total Bilirubin (0.2-1.0) mg/dL AST (10-42) IU/L ALT (10-60) IU/L Alkaline Phosphatase (42-121) IU/L Total Protein (6.7-8.2) g/dL Albumin (3.2-5.5) g/dL Globulin (2.1-4.2) g/dL Albumin/Globulin Ratio (1.0-2.2) Lipase (22-51) U/L Blood Type Antibody Screen - Diagnostic Imaging Results Diagnostic Imaging Results: positive: Prelim report reviewed, Read independently, Other (There is a displaced femoral neck fracture of the right hip with shortening and rotation. Because of the shortening there is bony overlap but the fracture appears to be mid cervical, perhaps basilar. A CT scan has been ordered of the right hip to better localize the fracture. The lateral x-ray was of poor technical quality, unable to determine fracture location.) Impression/Plan - Problem List Problem List: s1. Displaced femoral neck fracture right hip Unless the CT scan suggest a basilar neck fracture, she will have a right hip hemiarthroplasty with cement. I have discussed the risk, goals and alternatives including disability and . She is somewhat familiar with hip fracture surgery since she has had 2 on the left side including a left total hip arthroplasty. She is in total agreement to proceed with surgery to maintain her ability to ambulate and to decrease her pain. Her sister was present at her bedside. 2. Her primary comorbidity is cardiovascular with history of cardiomyopathy and possible use of Plavix although she denies use of Plavix. I have discussed the case with the [employer] sales consultant transcription typist and Dr. Sutton, ER physician. The hospitalist has seen the patient and the tentative plan is to perform surgery for her right hip tomorrow.
--- NOTE | 2019-10-03 21:45 | CT Report ---
PROCEDURE: PELVIS WO INDICATIONS: eval hip frx TECHNIQUE: Noncontrast 3 mm axial sections acquired through the bony pelvis, with coronal and sagittal reformatt ing. For radiation dose reduction, the following was used: automated exposure control, adjustment of mA and/or kV according to patient size. COMPARISON: Right hip radiograph from the same day. FINDINGS: Image quality: Excellent. Bones: As seen on right hip radiograph, there is an acute comminuted fractures involving the right f emoral neck extending to the right intertrochanteric region. There is superior migration of right fem oral shaft in relation to femoral head. Posterior displacement at femoral neck fracture site is also seen. Diffuse osteopenia is noted. Subacute right superior and inferior pubic rami fracture is seen w ith exuberant callus formation at fracture site. Osteophytic changes are noted throughout bony pelvis . Patient is status post left total hip arthroplasty with anatomic left hip alignment. No gross hardw are loosening or failure. Degenerative disc disease in visualized lower lumbar spine is seen. No susp icious intraosseous lesion. Soft tissues: Marked soft tissue swelling adjacent to right femoral neck fracture site is seen. Ther e is suggestion of intramuscular hematoma involving right anterior upper thigh muscle. Intramuscular hematoma is also present within right adductor muscles. No pelvic free fluid or free air is seen. No abnormal bowel wall thickening. IMPRESSION: 1. Acute comminuted, and displaced fracture involving right femoral neck extending to involve right i ntertrochanteric region as described above. No dislocation. No evidence of avascular necrosis of femo ral head. 2. Diffuse osteopenia. Subacute/healing fracture involving right superior and inferior pubic rami. Pr ior left hip arthroplasty. No evidence of avascular necrosis. 3. Surrounding soft tissue edema and swelling surrounding right femoral neck fracture site with sugge stion of adjacent intramuscular hematoma. No pelvic free fluid or free air. Reviewed by: Eddie Hopson MD on 10/03/2019 9:43 PM PDT Approved by: Eddie Hopson MD on 10/03/2019 9:43 PM PDT Station ID: [id number]
[2019-10-03] MEDS: HEPARIN 5,000 UNIT/ML VIAL SUBQ SCH (22:12)
[2019-10-03] MEDS: LACTATED RINGERS 1,000 ML IV SCH (22:13)
[2019-10-03] MEDS: SODIUM CHLORIDE FLUSH 0.9% 10 ML SYRINGE IVP SCH (23:30)
[2019-10-04 05:56] LABS: BASOPHILS % (AUTO) 0.1 %; HGB - HEMOGLOBIN 10.8 g/dL (12.0-16.0); LYMPHOCYTES # (AUTO) 0.4 10^3/uL (1.5-3.5); LYMPHOCYTES % (AUTO) 4.7 %; MEAN CORPUSCULAR HEMOGLOBIN 30.8 pg (27.0-31.0); MEAN CORPUSCULAR HGB CONC 32.4 g/dL (32.0-36.0); MEAN CORPUSCULAR VOLUME 94.9 fL (81.0-99.0); MEAN PLATELET VOLUME 9.4 fL (7.9-10.8); MONOCYTES # (AUTO) 0.3 10^3/uL (0.0-1.0); MONOCYTES % (AUTO) 3.7 %; NEUTROPHILS # (AUTO) 7.7 10^3/uL (1.5-6.6); PLT - PLATELET COUNT 147 10^3/uL (130-450); RED BLOOD COUNT 3.51 10^6/uL (4.20-5.40); RED CELL DISTRIBUTION WIDTH 13.1 % (12.0-15.0); WHITE BLOOD COUNT 8.5 x10^3/uL (4.8-10.8)
[2019-10-04 06:09] LABS: CALCIUM 8.6 mg/dL (8.5-10.3); CREATININE 0.5 mg/dL (0.4-1.0); MAGNESIUM 2.2 mg/dL (1.7-2.8); PHOSPHORUS 3.2 mg/dL (2.5-4.6)
[2019-10-04] MEDS: carvediloL 12.5 MG TABLET PO SCH ×2 (08:20→21:52)
[2019-10-04] MEDS: LEVOTHYROXINE 100 MCG TABLET PO SCH (08:22)
[2019-10-04] MEDS: LACTATED RINGERS 1,000 ML IV SCH (08:23)
[2019-10-04] MEDS: HEPARIN 5,000 UNIT/ML VIAL SUBQ SCH ×2 (08:24→21:51)
[2019-10-04] MEDS ORDERED: lisinopriL 5 MG TABLET PO SCH (09:00)
--- NOTE | 2019-10-04 09:16 | PROVIDER PROGRESS NOTE ---
Subjective - General Admit Date: 10/03/19 - Review of Systems Musculoskeletal: positive: Other (Her pain is controlled to right hip, comfortable as long she does not move right leg.) All Other Systems: positive: Reviewed and negative Objective - Patient Data Vital Signs: Vital Signs x48h Temp Pulse Resp BP Pulse Ox 10/04/19 08:11 36.5 C 73 17 102/50 L 96 10/04/19 05:15 36.7 C 82 16 97/58 L 98 Weight: Weight 10/02/19 10/03/19 10/04/19 23:59 23:59 23:59 Weight (kg) 48 kg Intake & Output: Intake and Output Totals x24h 10/02/19 10/03/19 10/04/19 23:59 23:59 23:59 Intake Total 1000 Output Total 40 450 Balance -40 550 - Lab Results Lab Results: 10/04/19 05:25 10/04/19 05:25 Other Lab Results: Lab Results x24hrs 10/04/19 10/04/19 10/03/19 Range/Units 05:25 05:25 19:55 WBC 8.5 (4.8-10.8) x10^3/uL RBC 3.51 L (4.20-5.40) 10^6/uL Hgb 10.8 L (12.0-16.0) g/dL Hct 33.3 L (37.0-47.0) % MCV 94.9 (81.0-99.0) fL MCH 30.8 (27.0-31.0) pg MCHC 32.4 (32.0-36.0) g/dL RDW 13.1 (12.0-15.0) % Plt Count 147 (130-450) 10^3/uL MPV 9.4 (7.9-10.8) fL Neut # (Auto) 7.7 H (1.5-6.6) 10^3/uL Lymph # (Auto) 0.4 L (1.5-3.5) 10^3/uL [place] # (Auto) 0.3 (0.0-1.0) 10^3/uL Eos # (Auto) 0.0 (0.0-0.7) 10^3/uL Baso # (Auto) 0.0 (0.0-0.1) 10^3/uL Absolute Nucleated RBC 0.00 x10^3/uL Nucleated RBC % 0.0 /100WBC PT (9.9-12.6) secs INR (0.8-1.2) Sodium 138 (135-145) mmol/L Potassium 3.6 (3.5-5.0) mmol/L Chloride 108 (101-111) mmol/L Carbon Dioxide 21 (21-32) mmol/L Anion Gap 9.0 (6-13) BUN 16 (6-20) mg/dL Creatinine 0.5 (0.4-1.0) mg/dL Estimated GFR (MDRD) 117 (>89) Glucose 157 H (70-100) mg/dL Calcium 8.6 (8.5-10.3) mg/dL Phosphorus 3.2 (2.5-4.6) mg/dL Magnesium 2.2 (1.7-2.8) mg/dL Total Bilirubin (0.2-1.0) mg/dL AST (10-42) IU/L ALT (10-60) IU/L Alkaline Phosphatase (42-121) IU/L Total Protein (6.7-8.2) g/dL Albumin (3.2-5.5) g/dL Globulin (2.1-4.2) g/dL Albumin/Globulin Ratio (1.0-2.2) Lipase (22-51) U/L Blood Type O POSITIVE Antibody Screen NEGATIVE 10/03/19 10/03/19 10/03/19 Range/Units 19:44 19:44 19:44 WBC 11.0 H (4.8-10.8) x10^3/uL RBC 4.17 L (4.20-5.40) 10^6/uL Hgb 12.9 (12.0-16.0) g/dL Hct 39.7 (37.0-47.0) % MCV 95.2 (81.0-99.0) fL MCH 30.9 (27.0-31.0) pg MCHC 32.5 (32.0-36.0) g/dL RDW 13.1 (12.0-15.0) % Plt Count 182 (130-450) 10^3/uL MPV 9.3 (7.9-10.8) fL Neut # (Auto) 9.0 H (1.5-6.6) 10^3/uL Lymph # (Auto) 1.0 L (1.5-3.5) 10^3/uL [place] # (Auto) 0.8 (0.0-1.0) 10^3/uL Eos # (Auto) 0.1 (0.0-0.7) 10^3/uL Baso # (Auto) 0.1 (0.0-0.1) 10^3/uL Absolute Nucleated RBC 0.00 x10^3/uL Nucleated RBC % 0.0 /100WBC PT 12.9 H (9.9-12.6) secs INR 1.1 (0.8-1.2) Sodium 139 (135-145) mmol/L Potassium 3.9 (3.5-5.0) mmol/L Chloride 107 (101-111) mmol/L Carbon Dioxide 23 (21-32) mmol/L Anion Gap 9.0 (6-13) BUN 17 (6-20) mg/dL Creatinine 0.5 (0.4-1.0) mg/dL Estimated GFR (MDRD) 117 (>89) Glucose 115 H (70-100) mg/dL Calcium 9.6 (8.5-10.3) mg/dL Phosphorus (2.5-4.6) mg/dL Magnesium (1.7-2.8) mg/dL Total Bilirubin 0.6 (0.2-1.0) mg/dL AST 20 (10-42) IU/L ALT 20 (10-60) IU/L Alkaline Phosphatase 52 (42-121) IU/L Total Protein 6.9 (6.7-8.2) g/dL Albumin 4.2 (3.2-5.5) g/dL Globulin 2.7 (2.1-4.2) g/dL Albumin/Globulin Ratio 1.6 (1.0-2.2) Lipase 41 (22-51) U/L Blood Type Antibody Screen - Imaging Results Radiology Imaging: positive: Other (I independently visualized the CT scan this morning and it shows a basilar neck femoral neck fracture of the right hip. Th is can be treated with a cephalo-medullary nail rather than a hemiarthroplasty. The fracture is displaced with shortening and rotation.) - Current Medications Current Medications: Current Medications Generic Name Dose Route Start Last Admin Trade Name Lee PRN Reason Stop Dose Admin Carvedilol 12.5 mg 10/04/19 09:00 10/04/19 08:20 Coreg PO 12.5 mg BID SAM Administration Heparin Sodium (Porcine) 5,000 unit 10/03/19 21:00 10/04/19 08:24 SUBQ Not Given BID SAM Lactated Ringer's 1,000 mls @ 100 mls/hr 10/03/19 21:00 10/04/19 08:23 Lr IV 100 mls/hr .Q10H SAM Administration Levothyroxine Sodium 100 mcg 10/04/19 09:00 10/04/19 08:22 Synthroid PO 100 mcg DAILY SAM Administration Lisinopril 2.5 mg 10/04/19 09:00 10/04/19 08:20 Zestril PO 2.5 mg DAILY SAM Administration Sodium Chloride 10 ml 10/04/19 01:00 10/03/19 23:30 Normal Saline Flush 0.9% IVP Not Given 0100,0900,1700 SAM Impression/Plan - Problem List Problem List: sDisplaced basilar femoral neck fracture right hip Instead of the cemented hemiarthroplasty of the right hip, this can be treated with cephalo-medullary nail with hip screw. I discussed this with the patient, have her sign a new consent. The risk, goals and alternatives are similar; less incision blood loss and somewhat shorter operative procedure with the internal fixation versus the hemiarthroplasty.
--- NOTE | 2019-10-04 10:11 | ANESTHESIA ---
Pre-Anesthesia VS, & Labs - Diagnosis right hip fracture - Procedure right hip IM nailing vs hemiarthroplasty Vital Signs: Temp Pulse Resp BP Pulse Ox 36.5 C 73 17 102/50 L 96 10/04/19 08:11 10/04/19 08:11 10/04/19 08:11 10/04/19 08:11 10/04/19 08:11 Height 5 ft 3 in Weight (kg) 48 kg Body Mass Index 18.7 - Is Patient ?: No - Lab Results Current Lab Results: Laboratory Tests 10/04/19 05:25: Sodium 138, Potassium 3.6, Chloride 108, Carbon Dioxide 21, Anion Gap 9.0, BUN 16, Creatinine 0.5, Estimated GFR (MDRD) 117, Glucose 157 H, Calcium 8.6, Phosphorus 3.2, Magnesium 2.2 10/04/19 05:25: WBC 8.5, RBC 3.51 L, Hgb 10.8 L, Hct 33.3 L, MCV 94.9, MCH 30.8, MCHC 32.4, RDW 13.1, Plt Count 147, MPV 9.4, Neut # (Auto) 7.7 H, Lymph # (Auto) 0.4 L, [place] # (Auto) 0.3, Eos # (Auto) 0.0, Baso # (Auto) 0.0, Absolute Nucleated RBC 0.00, Nucleated RBC % 0.0 10/03/19 19:55: Blood Type O POSITIVE, Antibody Screen NEGATIVE 10/03/19 19:44: Sodium 139, Potassium 3.9, Chloride 107, Carbon Dioxide 23, Anion Gap 9.0, BUN 17, Creatinine 0.5, Estimated GFR (MDRD) 117, Glucose 115 H, Calcium 9.6, Total Bilirubin 0.6, AST 20, ALT 20, Alkaline Phosphatase 52, Total Protein 6.9, Albumin 4.2, Globulin 2.7, Albumin/Globulin Ratio 1.6, Lipase 41 10/03/19 19:44: PT 12.9 H, INR 1.1 10/03/19 19:44: WBC 11.0 H, RBC 4.17 L, Hgb 12.9, Hct 39.7, MCV 95.2, MCH 30.9, MCHC 32.5, RDW 13.1, Plt Count 182, MPV 9.3, Neut # (Auto) 9.0 H, Lymph # (Auto) 1.0 L, [place] # (Auto) 0.8, Eos # (Auto) 0.1, Baso # (Auto) 0.1, Absolute Nucleated RBC 0.00, Nucleated RBC % 0.0 Fish Bones: 10/04/19 05:25 10/04/19 05:25 Home Medications and Allergies Active Medications Acetaminophen (Tylenol) 650 mg PO Q4HR PRN PRN Reason: Pain 1 to 4 Atorvastatin Calcium (Lipitor) 10 mg PO QPM [facility] Carvedilol (Coreg) 12.5 mg PO BID [facility] Last Admin: 10/04/19 08:20 Dose: 12.5 mg Documented by: Heparin Sodium (Porcine) () 5,000 unit SUBQ BID [facility] Last Admin: 10/04/19 08:24 Dose: Not Given Documented by: Lactated Ringer's (Lr) 1,000 mls @ 100 mls/hr IV .Q10H [facility] Last Admin: 10/04/19 08:23 Dose: 100 mls/hr Documented by: Levothyroxine Sodium (Synthroid) 100 mcg PO DAILY [facility] Last Admin: 10/04/19 08:22 Dose: 100 mcg Documented by: Lisinopril (Zestril) 2.5 mg PO DAILY [facility] Last Admin: 10/04/19 08:20 Dose: 2.5 mg Documented by: Morphine Sulfate (Morphine (Carpuject)) 2 mg IVP Q2HR PRN PRN Reason: Pain 8 to 10 Ondansetron HCl (Zofran Inj) 4 mg IVP Q6HR PRN PRN Reason: Nausea / Vomiting Ondansetron HCl (Zofran Odt) 4 mg TL Q6HR PRN PRN Reason: Nausea / Vomiting Sodium Chloride (Normal Saline Flush 0.9%) 10 ml IVP PRN PRN PRN Reason: NEEDED PER PROVIDER ORDERS Sodium Chloride (Normal Saline Flush 0.9%) 10 ml IVP 0100,0900,1700 [facility] Last Admin: 10/03/19 23:30 Dose: Not Given Documented by: Aspirin [Aspir 81] 81 mg PO QPM 03/25/15 Carvedilol 12.5 mg PO BID 03/25/15 Levothyroxine [Synthroid] 100 mcg PO DAILY 03/25/15 Calcium Carbonate [Calcium] 600 mg PO BID 03/26/15 Clopidogrel [Plavix] 75 mg PO DAILY 08/30/15 Acetaminophen/Cod 300/30 [Tylenol #3] 1 - 2 tab PO QID [facility]D PAIN 09/01/15 Alendronate [Fosamax] 70 mg PO Q7D 09/01/15 Atorvastatin Calcium 10 mg PO QPM 09/01/15 Fluticasone [Flonase] 1 sprays LINDY BID 09/01/15 Lisinopril [Zestril] 2.5 mg PO DAILY 06/30/19 Patient no longer taking plavix and hasn't for a number of years. Also does not take fosamax. Currently taking prolia Allergies/Adverse Reactions: Allergies Allergy/AdvReac Type Severity Reaction Status Date / Time levofloxacin [From Levaquin] Allergy Unknown Verified 10/03/19 19:14 meperidine HCl * Allergy Unknown Verified 10/03/19 19:14 [From Demerol] Penicillins Allergy Unknown Verified 10/03/19 19:14 perfume Allergy Unknown Verified 10/03/19 20:28 Sulfa (Sulfonamide Allergy Unknown Verified 10/03/19 19:14 Antibiotics) Anes History & Medical History - Anesthetic History Anesthesia Complications: reports: No previous complications - Medical History Cardiovascular: reports: Congestive heart failure (Last ECHO from 2014 showed EF 50%), Hypertension, High cholesterol Pulmonary: reports: None Gastrointestinal: reports: None Urinary: reports: None Neuro: reports: CVA (no residual) Musculoskeletal: reports: Osteoarthritis Endocrine/Autoimmune: reports: HyPOthyroidism Blood Disorders: reports: None Skin: reports: None Smoking Status: Never smoker Psychosocial: reports: No issues indicated - Surgical History Eyes Ears Nose Throat (EENT): Cataracts, Tonsil/Adenoidectomy Cardiothoracic: AICD Gynecologic: Hysterectomy Orthopedic: Hip replacement Results - EKG Results EKG Comparison: Reviewed EKG (AV dual paced rhythm) Exam General: Alert, Oriented x3, Cooperative, No acute distress Mouth Openin Fingerbreadth Neck Mobility: Normal Mallampati classification: III Thyromental Distance: 4-6 cm Respiratory: Lungs clear, Normal breath sounds, No respiratory distress, No accessory muscle use Cardiovascular: Regular rate, Normal S1, Normal S2, No murmurs Mental/Cognitive Status: Alert/Oriented X3, Normal for patient Plan Anesthesia Type: Spinal, Fascia Iliaca Block (right) Regional Block: Per Surgeon's request for Post Op pain control Consent for Procedure(s) Verified and Reviewed: Yes Code Status: Attempt Resuscitation ASA classification: 3-Severe systemic disease Is this case an emergency?: No
[2019-10-04] MEDS: MORPHINE 2 MG/ML CARPUJECT IVP PRN (10:30)
[2019-10-04] MEDS: SODIUM CHLORIDE FLUSH 0.9% 10 ML SYRINGE IVP SCH ×2 (10:31→16:57)
[2019-10-04] MEDS ORDERED: LACTATED RINGERS 1,000 ML IV ONE ×2 (11:57→13:12)
[2019-10-04] MEDS ORDERED: BUPIVACAINE 0.25% PF 30 ML VIAL ONE (12:14)
[2019-10-04] MEDS ORDERED: BUPIVACAINE 0.25% PF 30 ML VIAL SUBQ ONE (12:15)
--- NOTE | 2019-10-04 13:22 | OPERATIVE REPORT ---
Operative Report - General Admit Date: 10/03/19 Procedure Date: 10/04/19 Planned Procedure: Open reduction internal fixation basilar femoral neck fracture right hip Pre-Op Diagnosis: Displaced basilar femoral neck fracture right hip Procedure Performed: Open reduction internal fixation basilar neck femoral fracture with [employer] intramedullary mamadou with hip screw and interlocking screw; 10 mm mamadou, 85 mm lag screw and 5 x 30 mm distal locking screw Post Op Diagnosis: Same as preop - Procedure Note Primary Surgeon: Sarbjit Hendrix M.D. Secondary Surgeon: Maggie Lai Anesthesia Provider: Harshad Hugo CRNA Anesthesia Technique: Spinal Estimated Blood Loss (mL): 50 Indications: This is an ambulatory woman who fell and sustained a isolated injury to her right hip yesterday. She sustained a basilar femoral neck fracture of the right hip best confirmed with the CT x-rays of the right hip. She was seen and felt to be appropriate for surgery by her hospitalist. She has sustained previous fracture to the opposite left hip approximately 3 to 4 years ago. Findings: Displaced basilar femoral neck fracture right hip Complications: None - Other Other Information/Narrative: This 84-year-old woman was brought to the operating room table. She was given a lumbar spinal anesthetic. She was positioned on the [place] fracture table with the well-leg in a well-leg boles. The right leg was placed in boot traction and was placed in a neutral position with the patella facing superiorly. The right hip and lower extremity were prepped and draped in a sterile manner in the usual fashion using a sterile vertical transparent barrier. The C-arm image intensifier was used intermittently throughout the procedure. Before the prepping, the C arm image intensifier confirmed that there was a near anatomic reduction to the fracture of the right hip. A timeout procedure had been performed by the entire operating room team and all were in agreement. A inch and a half incision was made proximal to the greater trochanter. The incision was taken down through subcutaneous tissue and the fascia over the gluteus was split longitudinally. The starting point was placed at the medial edge of the greater trochanter and the guidepin was positioned with the help of a starter guide. The position of the pin was checked with AP and lateral imaging. The entry reamer was then used to create a entry hole. The 10 mm intramedullary mamadou and guide was inserted by hand and gently impacted by hand. A guidepin was then utilized to enter the femoral head in the midline, depth measured at 85 mm the compression screw was opened with a lateral drill and then a full-length drill bit, then anti-rotation guide inserted. The lag screw was then reamed just short of 85 mm. The position of the guidepin had been checked in the femoral head to be in the midline on both AP and lateral views. The lag screw was inserted and had good stability, next the compression screw was inserted. A distal locking screw was inserted through a third stab incision and a 5 x 30 mm distal locking screw was inserted in dynamic mode. The wounds were thoroughly irrigated. The subcutaneous tissue was closed with 0 Vicryl and the skin was closed with a subcuticular 2-0 Vicryl suture. The small incisions for the lag screw and distal locking screw were closed with 3 o vertical mattress sutures using nylon suture. A silver impregnated dressing was applied to the incisions. She received 2 g of Ancef prior to the incision. There is no clinical deformity at the end the procedure and good motion to right hip. The patient tolerated procedure well
[2019-10-04] MEDS ORDERED: ACETAMINOPHEN 325 MG TABLET PO PRN (13:42)
[2019-10-04] MEDS ORDERED: ONDANSETRON 4 MG/2 ML VIAL IVP PRN ×2 (13:42)
[2019-10-04] MEDS ORDERED: DOCUSATE SODIUM 100 MG CAPSULE PO PRN (13:42)
[2019-10-04] MEDS ORDERED: ACETAMINOPHEN 1,000 MG/100 ML 100 ML IV PRN ×2 (13:42)
[2019-10-04] MEDS ORDERED: SODIUM CHLORIDE FLUSH 0.9% 10 ML SYRINGE IVP PRN ×2 (13:42)
[2019-10-04] MEDS ORDERED: oxyCODONE 5 MG TABLET PO PRN (13:42)
--- NOTE | 2019-10-04 13:50 | XRAY Report ---
Reason: ORIF RIGHT HIP Procedure Date: 10/04/2019 Accession Number: [id number] / [id number] Procedure: [place] - OR C-Arm Procedure CPT Code: Final Report FULL RESULT: PROCEDURE: OR C-Arm Procedure INDICATIONS: ORIF RIGHT HIP TECHNIQUE: 5 spot fluoroscopic intraoperative views COMPARISON: None. FINDINGS: Spot fluoroscopic intraoperative views demonstrating mamadou and dynamic screw fixation of the proximal right femur. Hardware appears intact. Chronic right inferior and superior pubic rami fractures. Reviewed by: Dale Munguia MD on 10/04/2019 1:48 PM PDT Approved by: Dale Munguia MD on 10/04/2019 1:48 PM PDT Station ID: [id number]
[2019-10-04 14:09] LABS: BASOPHILS % (AUTO) 0.2 %; EOSINOPHILS # (AUTO) 0.2 10^3/uL (0.0-0.7); EOSINOPHILS % (AUTO) 1.8 %; HGB - HEMOGLOBIN 10.4 g/dL (12.0-16.0); LYMPHOCYTES # (AUTO) 0.4 10^3/uL (1.5-3.5); LYMPHOCYTES % (AUTO) 3.9 %; MEAN CORPUSCULAR HEMOGLOBIN 32.8 pg (27.0-31.0); MEAN CORPUSCULAR HGB CONC 33.7 g/dL (32.0-36.0); MEAN CORPUSCULAR VOLUME 97.5 fL (81.0-99.0); MEAN PLATELET VOLUME 9.4 fL (7.9-10.8); MONOCYTES # (AUTO) 1.2 10^3/uL (0.0-1.0); NEUTROPHILS # (AUTO) 8.7 10^3/uL (1.5-6.6); NEUTROPHILS % (AUTO) 82.7 %; PLT - PLATELET COUNT 140 10^3/uL (130-450); RED BLOOD COUNT 3.17 10^6/uL (4.20-5.40); RED CELL DISTRIBUTION WIDTH 13.1 % (12.0-15.0); WHITE BLOOD COUNT 10.5 x10^3/uL (4.8-10.8)
[2019-10-04] MEDS: SODIUM CHLORIDE 0.9% 1,000 ML IV SCH (14:33)
--- NOTE | 2019-10-04 15:05 | PROVIDER PROGRESS NOTE ---
Assessment/Plan - Problem List (1) Fracture of femoral neck, right, closed Qualifiers: Encounter type: subsequent encounter Assessment/Plan: She had orthopedic surgery today, successful. Start OOB and PT tomorrow. Pain meds prn (2) History of cardiomyopathy Assessment/Plan: A pre-op echo was done pre-op today that showed mildly depressed-low normal LVEF of 50%. Continue her usual cardiac meds. (3) AICD (automatic cardioverter/defibrillator) present Assessment/Plan: Stable (4) HTN (hypertension) Assessment/Plan: Continue her antihypertensives for blood pressure management (5) History of stroke Assessment/Plan: Aspirin dose will be probably increased by orthopedics, they use full dose aspirin twice daily for DVT prophylaxis. Continue her other home medications (6) Hypothyroidism Assessment/Plan: Continue her home Synthroid replacement while here. - Current Meds Current Meds: Current Medications Generic Name Dose Route Start Last Admin Trade Name Freq PRN Reason Stop Dose Admin Carvedilol 12.5 mg 10/04/19 09:00 10/04/19 08:20 Coreg PO 12.5 mg BID SAM Administration Heparin Sodium (Porcine) 5,000 unit 10/03/19 21:00 10/04/19 08:24 SUBQ Not Given BID SAM Sodium Chloride 1,000 mls @ 100 mls/hr 10/04/19 14:00 10/04/19 14:33 Normal Saline 0.9% IV 100 mls/hr .Q10H SAM Administration Levothyroxine Sodium 100 mcg 10/04/19 09:00 10/04/19 08:22 Synthroid PO 100 mcg DAILY SAM Administration Lisinopril 2.5 mg 10/04/19 09:00 10/04/19 08:20 Zestril PO 2.5 mg DAILY SAM Administration Morphine Sulfate 2 mg 10/03/19 20:14 10/04/19 10:30 Morphine (Carpuject) IVP 2 mg Q2HR PRN Administration Pain 8 to 10 - Lab Result Fish Bone Diagrams: 10/05/19 15:06 10/05/19 05:25 Objective Vital Signs: Vital Signs - 24 hr 10/03/19 10/03/19 10/03/19 19:15 19:21 20:30 Temperature 36.5 C Heart Rate 76 71 79 Heart Rate [ Brachial] Respiratory 18 18 Rate Blood Pressure 147/92 H 147/92 H 128/81 H Blood Pressure [Left Brachial artery] O2 Saturation 100 95 95 10/03/19 10/03/19 10/03/19 21:33 22:10 23:35 Temperature 36.5 C 36.3 C L Heart Rate 87 Heart Rate [ 75 81 Brachial] Respiratory 18 18 16 Rate Blood Pressure 121/69 Blood Pressure 109/95 H 107/65 [Left Brachial artery] O2 Saturation 97 100 100 10/04/19 10/04/19 10/04/19 05:15 08:11 12:00 Temperature 36.7 C 36.5 C 36.5 C Heart Rate 79 Heart Rate [ 82 73 Brachial] Respiratory 16 17 16 Rate Blood Pressure Blood Pressure 97/58 L 102/50 L [Left Brachial artery] O2 Saturation 98 96 97 10/04/19 10/04/19 10/04/19 13:28 13:30 13:35 Temperature 37.0 C 36.9 C 36.6 C Heart Rate 66 67 60 Heart Rate [ Brachial] Respiratory 17 17 16 Rate Blood Pressure 100/61 127/70 129/68 Blood Pressure [Left Brachial artery] O2 Saturation 100 100 98 10/04/19 10/04/19 10/04/19 13:40 13:45 14:00 Temperature 36.5 C 36.4 C L 36.4 C L Heart Rate 67 66 69 Heart Rate [ Brachial] Respiratory 16 16 16 Rate Blood Pressure 115/60 116/60 103/63 Blood Pressure [Left Brachial artery] O2 Saturation 100 98 100 10/04/19 10/04/19 14:12 14:40 Temperature 36.3 C L Heart Rate Heart Rate [ 70 68 Brachial] Respiratory 16 16 Rate Blood Pressure Blood Pressure 114/60 106/68 [Left Brachial artery] O2 Saturation 100 Oxygen O2 Source [With Activity] Room air O2 Source [Without Activity] Room air O2 Source Room air I&O (Last 24 Hrs): Intake and Output Totals x24h 10/02/19 10/03/19 10/04/19 23:59 23:59 23:59 Intake Total 1650 Output Total 40 950 Balance -40 700 General: Alert HEENT: Mucous membr. moist/pink Neck: Supple Neuro: Alert, Other (Patient somewhat slow to answer. She was eseen by me before her surgery, immobile in bed) Cardiovascular: No murmurs Respiratory: No respiratory distress Abdomen: Soft Extremities: No edema - Results Results: Laboratory Results WBC 10.5 x10^3/uL (4.8-10.8) 10/04/19 14:02 RBC 3.17 10^6/uL (4.20-5.40) L 10/04/19 14:02 Hgb 10.4 g/dL (12.0-16.0) L 10/04/19 14:02 Hct 30.9 % (37.0-47.0) L 10/04/19 14:02 MCV 97.5 fL (81.0-99.0) 10/04/19 14:02 MCH 32.8 pg (27.0-31.0) H 10/04/19 14:02 MCHC 33.7 g/dL (32.0-36.0) 10/04/19 14:02 RDW 13.1 % (12.0-15.0) 10/04/19 14:02 Plt Count 140 10^3/uL (130-450) 10/04/19 14:02 MPV 9.4 fL (7.9-10.8) 10/04/19 14:02 Neut # (Auto) 8.7 10^3/uL (1.5-6.6) H 10/04/19 14:02 Lymph # (Auto) 0.4 10^3/uL (1.5-3.5) L 10/04/19 14:02 [place] # (Auto) 1.2 10^3/uL (0.0-1.0) H 10/04/19 14:02 Eos # (Auto) 0.2 10^3/uL (0.0-0.7) 10/04/19 14:02 Baso # (Auto) 0.0 10^3/uL (0.0-0.1) 10/04/19 14:02 Absolute Nucleated RBC 0.00 x10^3/uL 10/04/19 14:02 Nucleated RBC % 0.0 /100WBC 10/04/19 14:02 PT 12.9 secs (9.9-12.6) H 10/03/19 19:44 INR 1.1 (0.8-1.2) 10/03/19 19:44 Sodium 138 mmol/L (135-145) 10/04/19 05:25 Potassium 3.6 mmol/L (3.5-5.0) 10/04/19 05:25 Chloride 108 mmol/L (101-111) 10/04/19 05:25 Carbon Dioxide 21 mmol/L (21-32) 10/04/19 05:25 Anion Gap 9.0 (6-13) 10/04/19 05:25 BUN 16 mg/dL (6-20) 10/04/19 05:25 Creatinine 0.5 mg/dL (0.4-1.0) 10/04/19 05:25 Estimated GFR (MDRD) 117 (>89) 10/04/19 05:25 Glucose 157 mg/dL (70-100) H 10/04/19 05:25 Calcium 8.6 mg/dL (8.5-10.3) 10/04/19 05:25 Phosphorus 3.2 mg/dL (2.5-4.6) 10/04/19 05:25 Magnesium 2.2 mg/dL (1.7-2.8) 10/04/19 05:25 Total Bilirubin 0.6 mg/dL (0.2-1.0) 10/03/19 19:44 AST 20 IU/L (10-42) 10/03/19 19:44 ALT 20 IU/L (10-60) 10/03/19 19:44 Alkaline Phosphatase 52 IU/L (42-121) 10/03/19 19:44 Total Protein 6.9 g/dL (6.7-8.2) 10/03/19 19:44 Albumin 4.2 g/dL (3.2-5.5) 10/03/19 19:44 Globulin 2.7 g/dL (2.1-4.2) 10/03/19 19:44 Albumin/Globulin Ratio 1.6 (1.0-2.2) 10/03/19 19:44 Lipase 41 U/L (22-51) 10/03/19 19:44 Blood Type O POSITIVE 10/03/19 19:55 Antibody Screen NEGATIVE 10/03/19 19:55 - Procedures Procedures: Procedures REPOSITION LEFT UPPER FEMUR WITH INTRAMED FIX, OPEN APPROACH (08/30/15) TRANSFUSE NONAUT RED BLOOD CELLS IN PERIPH VEIN, PERC (08/30/15)
[2019-10-04] MEDS: ASPIRIN 325 MG TABLET PO SCH (16:57)
[2019-10-04] MEDS: oxyCODONE 5 MG TABLET PO PRN (16:57)
[2019-10-04] MEDS ORDERED: ASPIRIN 325 MG TABLET PO SCH (17:00)
[2019-10-04] MEDS ORDERED: SODIUM CHLORIDE FLUSH 0.9% 10 ML SYRINGE IVP SCH (17:00)
--- NOTE | 2019-10-04 17:29 | PHARMACY PROGRESS NOTE ---
- Best Possible Medication History Admit Date and Time: 10/03/192013 Processed by: Pharmacy Medication History completed: Yes Patient Interview: Completed Secondary Source(s): Pharmacy records, Insurance records As the person ultimately responsible for medication therapy, providers are able to order a medication from an existing home medication list in [facility] via the "Reconcile Routine" prior to Confirmation of that medication by director sales support. Such practice is discouraged except when the physician, in their clinical judgment, deems that a medical need exists for a medication without regard to previous use.
[2019-10-04] MEDS ORDERED: PROPOFOL 200 MG/20 ML VIAL IVP ONE (18:31)
[2019-10-04] MEDS ORDERED: MIDAZOLAM 2 MG/2 ML VIAL IVP ONE (18:31)
[2019-10-04] MEDS ORDERED: LIDOCAINE-MPF 2% 5 ML VIAL IM ONE (18:31)
[2019-10-04] MEDS: ceFAZolin 2 GM in SODIUM CHLORIDE 0.9% 100ML 100 ML IV SCH (20:10)
[2019-10-04] MEDS ORDERED: SODIUM CHLORIDE 0.9% 1,000 ML IV ONE (21:18)
[2019-10-04] MEDS: ATORVASTATIN 10 MG TABLET PO SCH ×2 (21:51→21:57)
[2019-10-04] MEDS: CALCIUM CARBONATE CHEW 500 MG TABLET PO SCH (21:51)
[2019-10-04] MEDS: ACETAMINOPHEN 325 MG TABLET PO PRN (22:41)
[2019-10-04] MEDS ORDERED: SODIUM CHLORIDE 0.9% 500 ML IV ONE (23:54)
[2019-10-05 00:26] LABS: HGB - HEMOGLOBIN 8.2 g/dL (12.0-16.0)
[2019-10-05] MEDS: SODIUM CHLORIDE FLUSH 0.9% 10 ML SYRINGE IVP SCH ×4 (00:45→23:48)
[2019-10-05] MEDS: oxyCODONE 5 MG TABLET PO PRN (02:54)
[2019-10-05] MEDS: ceFAZolin 2 GM in SODIUM CHLORIDE 0.9% 100ML 100 ML IV SCH (04:07)
[2019-10-05] MEDS ORDERED: SODIUM CHLORIDE 0.9% 500 ML IV ONE (04:19)
[2019-10-05] MEDS: SODIUM CHLORIDE 0.9% 1,000 ML IV SCH (04:38)
[2019-10-05 05:56] LABS: BASOPHILS % (AUTO) 0.2 %; EOSINOPHILS % (AUTO) 0.3 %; HGB - HEMOGLOBIN 7.8 g/dL (12.0-16.0); LYMPHOCYTES # (AUTO) 0.8 10^3/uL (1.5-3.5); LYMPHOCYTES % (AUTO) 11.8 %; MEAN CORPUSCULAR HEMOGLOBIN 31.8 pg (27.0-31.0); MEAN CORPUSCULAR HGB CONC 31.7 g/dL (32.0-36.0); MEAN CORPUSCULAR VOLUME 100.4 fL (81.0-99.0); MONOCYTES # (AUTO) 0.9 10^3/uL (0.0-1.0); MONOCYTES % (AUTO) 13.7 %; NEUTROPHILS # (AUTO) 4.8 10^3/uL (1.5-6.6); NEUTROPHILS % (AUTO) 73.7 %; PLT - PLATELET COUNT 100 10^3/uL (130-450); RED BLOOD COUNT 2.45 10^6/uL (4.20-5.40); RED CELL DISTRIBUTION WIDTH 13.2 % (12.0-15.0); WHITE BLOOD COUNT 6.4 x10^3/uL (4.8-10.8)
[2019-10-05 06:08] LABS: CREATININE 0.4 mg/dL (0.4-1.0); MAGNESIUM 1.9 mg/dL (1.7-2.8)
[2019-10-05] MEDS ORDERED: POTASSIUM PHOSPHATE 15 MMOL in SODIUM CHLORIDE 0.9% 250 ML IV ONE (07:30)
[2019-10-05] MEDS ORDERED: CALCIUM GLUCONATE 1,000 MG in SODIUM CHLORIDE 0.9% 50 ML IV ONE (08:00)
[2019-10-05] MEDS: CHOLECALCIFEROL 25 MCG TABLET PO SCH (08:35)
[2019-10-05] MEDS: ASPIRIN 325 MG TABLET PO SCH ×2 (08:36→17:21)
[2019-10-05] MEDS: LACTOBACILLUS RHAMNOSUS GG CAPSULE PO SCH (08:36)
[2019-10-05] MEDS: CALCIUM CARBONATE CHEW 500 MG TABLET PO SCH ×2 (08:37→20:19)
[2019-10-05] MEDS: LEVOTHYROXINE 100 MCG TABLET PO SCH (08:37)
[2019-10-05] MEDS: HEPARIN 5,000 UNIT/ML VIAL SUBQ SCH (08:43)
[2019-10-05] MEDS: MORPHINE 2 MG/ML CARPUJECT IVP PRN (11:17)
--- NOTE | 2019-10-05 14:11 | PROVIDER PROGRESS NOTE ---
Subjective - Prog Note Date Prog Note Date: 10/05/19 - Subjective Pt reports feeling: Improved Subjective: Patient is alert, orientated to self, location and the time. Patient systolic blood pressure is 97. Patient report his pain is control,and she is willing to cooperative with physical therapist and occupational therapist on today. She denies chest pain, fever, chill, short of breathing. She ate breakfast over- half. Current Medications - Current Medications Current Medications: Active Medications Acetaminophen (Tylenol) 650 - 975 mg PO Q4HR PRN PRN Reason: PAIN Last Admin: 10/04/19 22:41 Dose: 325 mg Documented by: Aspirin (Karina) 325 mg PO BIDWM [facility] Last Admin: 10/05/19 08:36 Dose: 325 mg Documented by: Atorvastatin Calcium (Lipitor) 10 mg PO QPM [facility] Last Admin: 10/04/19 21:57 Dose: Not Given Documented by: Calcium Carbonate/Glycine (Tums) 500 mg PO BID [facility] Last Admin: 10/05/19 08:37 Dose: 500 mg Documented by: Cholecalciferol (Vitamin D3) 50 mcg PO DAILY [facility] Last Admin: 10/05/19 08:35 Dose: 50 mcg Documented by: Docusate Sodium (Colace 100mg Capsule) 100 mg PO BID PRN PRN Reason: Constipation Heparin Sodium (Porcine) () 5,000 unit SUBQ BID [facility] Last Admin: 10/05/19 08:43 Dose: 5,000 unit Documented by: Acetaminophen (Ofirmev) 100 mls @ 400 mls/hr IV Q6HR PRN PRN Reason: PAIN Sodium Chloride (Normal Saline 0.9%) 1,000 mls @ 100 mls/hr IV .Q10H [facility] Last Infusion: 10/05/19 13:46 Dose: 50 mls/hr Documented by: Lactobacillus Rhamnosus (Culturelle) 1 cap PO DAILY [facility] Last Admin: 10/05/19 08:36 Dose: 1 cap Documented by: Levothyroxine Sodium (Synthroid) 100 mcg PO DAILY [facility] Last Admin: 10/05/19 08:37 Dose: 100 mcg Documented by: Morphine Sulfate (Morphine (Carpuject)) 2 mg IVP Q2HR PRN PRN Reason: Pain 8 to 10 Last Admin: 10/05/19 11:17 Dose: 2 mg Documented by: Ondansetron HCl (Zofran Odt) 4 mg TL Q6HR PRN PRN Reason: Nausea / Vomiting Ondansetron HCl (Zofran Inj) 4 mg IVP Q6HR PRN PRN Reason: Nausea / Vomiting Oxycodone HCl (Roxicodone) 5 mg PO Q6H PRN PRN Reason: PAIN Last Admin: 10/05/19 02:54 Dose: 5 mg Documented by: Sodium Chloride (Normal Saline Flush 0.9%) 10 ml IVP 0100,0900,1700 [facility] Last Admin: 10/05/19 10:30 Dose: Not Given Documented by: Sodium Chloride (Normal Saline Flush 0.9%) 10 ml IVP PRN PRN PRN Reason: NEEDED PER PROVIDER ORDERS Aspirin [Aspir 81] 81 mg PO QPM 03/25/15 Levothyroxine [Synthroid] 100 mcg PO QDAC 03/25/15 Calcium Carbonate [Calcium] 600 mg PO BID 03/26/15 Fluticasone [Flonase] 1 sprays LINDY BID 09/01/15 Lisinopril [Zestril] 2.5 mg PO DAILY 10/04/19 Rosuvastatin Calcium [Crestor] 5 mg PO MOWEFR@0900 10/04/19 carvediloL [Carvedilol] 12.5 mg PO BID 10/04/19 Objective - Vital Signs/Intake & Output Vital Signs: Vital Signs x48h Temp Pulse Pulse Pulse Resp BP BP 10/05/19 12:15 37.2 C 104 H 17 97/50 L 10/05/19 11:45 104 H 10/05/19 11:41 37.3 C 94 16 92/40 L 10/05/19 09:32 37 C 97 16 97/54 L 10/05/19 09:01 37 C 93 16 97/49 L 10/05/19 07:35 37.0 C 91 16 BP BP Pulse Ox 10/05/19 12:15 10/05/19 11:45 97/50 L 10/05/19 11:41 98 10/05/19 09:32 10/05/19 09:01 10/05/19 07:35 99/53 L 96 Intake & Output: Intake & Output 10/02/19 10/03/19 10/04/19 10/05/19 23:59 23:59 23:59 23:59 Intake Total 3868.334 3138.333 Output Total 40 1100 1050 Balance -40 8788.334 2088.333 - Objective General Appearance: positive: No acute distress, Alert. negative: Lethargic Eyes Bilateral: positive: Normal inspection, PERRL, No lid inflammation ENT: positive: ENT inspection nml, Pharynx nml, No signs of dehydration. negative: Purulent nasal drainage, Oral lesions, Dry mucous membranes Neck: positive: Nml inspection, Thyroid nml, No JVD, Trachea midline. negative: Thyromegaly, Stiff neck, Tracheal deviation Respiratory: positive: Chest non-tender, No respiratory distress. negative: Wheezes, Rales, Rhonchi Cardiovascular: positive: Regular rate & rhythm, No murmur, No gallop. negative: Tachycardia, Bradycardia, Systolic murmur, Diastolic murmur Peripheral Pulses: 2+ Radial (R), 2+ Radial (L), 2+ Dorsalis pedis (R), 2+ Dorsalis pedis (L) Abdomen: positive: Non-tender, No organomegaly, Nml bowel sounds, No distention. negative: Tenderness, Guarding, Rebound Back: positive: Nml inspection. negative: CVA tenderness (R), CVA tenderness (L) Skin: positive: Color nml, No rash, Warm, Dry. negative: Cyanosis, Diaphoresis, Pallor Extremities: positive: Nml appearance. negative: Calf tenderness, Anneliese's sign/cords Neurologic/Psychiatric: positive: Oriented x3, Sensation nml, Mood/affect nml. negative: Weakness, Sensory loss, Facial droop, Slurred/abnml speech, Depressed mood/affect - Lab Results Fish Bones: 10/05/19 05:25 10/05/19 05:25 Other Labs: Lab Results x24hrs 10/05/19 10/05/19 10/05/19 Range/Units 05:25 05:25 00:15 WBC 6.4 (4.8-10.8) x10^3/uL RBC 2.45 L (4.20-5.40) 10^6/uL Hgb 7.8 L 8.2 L (12.0-16.0) g/dL Hct 24.6 L 24.7 L (37.0-47.0) % MCV 100.4 H (81.0-99.0) fL MCH 31.8 H (27.0-31.0) pg MCHC 31.7 L (32.0-36.0) g/dL RDW 13.2 (12.0-15.0) % Plt Count 100 L (130-450) 10^3/uL MPV 10.0 (7.9-10.8) fL Neut # (Auto) 4.8 (1.5-6.6) 10^3/uL Lymph # (Auto) 0.8 L (1.5-3.5) 10^3/uL [place] # (Auto) 0.9 (0.0-1.0) 10^3/uL Eos # (Auto) 0.0 (0.0-0.7) 10^3/uL Baso # (Auto) 0.0 (0.0-0.1) 10^3/uL Absolute Nucleated RBC 0.00 x10^3/uL Nucleated RBC % 0.0 /100WBC Sodium 139 (135-145) mmol/L Potassium 3.5 (3.5-5.0) mmol/L Chloride 113 H (101-111) mmol/L Carbon Dioxide 20 L (21-32) mmol/L Anion Gap 6.0 (6-13) BUN 13 (6-20) mg/dL Creatinine 0.4 (0.4-1.0) mg/dL Estimated GFR (MDRD) 151 (>89) Glucose 103 H (70-100) mg/dL Calcium 7.0 L (8.5-10.3) mg/dL Phosphorus 2.0 L (2.5-4.6) mg/dL Magnesium 1.9 (1.7-2.8) mg/dL Blood Type Antibody Screen Crossmatch IS Only 10/04/19 10/03/19 Range/Units 14:02 23:58 WBC 10.5 (4.8-10.8) x10^3/uL RBC 3.17 L (4.20-5.40) 10^6/uL Hgb 10.4 L (12.0-16.0) g/dL Hct 30.9 L (37.0-47.0) % MCV 97.5 (81.0-99.0) fL MCH 32.8 H (27.0-31.0) pg MCHC 33.7 (32.0-36.0) g/dL RDW 13.1 (12.0-15.0) % Plt Count 140 (130-450) 10^3/uL MPV 9.4 (7.9-10.8) fL Neut # (Auto) 8.7 H (1.5-6.6) 10^3/uL Lymph # (Auto) 0.4 L (1.5-3.5) 10^3/uL [place] # (Auto) 1.2 H (0.0-1.0) 10^3/uL Eos # (Auto) 0.2 (0.0-0.7) 10^3/uL Baso # (Auto) 0.0 (0.0-0.1) 10^3/uL Absolute Nucleated RBC 0.00 x10^3/uL Nucleated RBC % 0.0 /100WBC Sodium (135-145) mmol/L Potassium (3.5-5.0) mmol/L Chloride (101-111) mmol/L Carbon Dioxide (21-32) mmol/L Anion Gap (6-13) BUN (6-20) mg/dL Creatinine (0.4-1.0) mg/dL Estimated GFR (MDRD) (>89) Glucose (70-100) mg/dL Calcium (8.5-10.3) mg/dL Phosphorus (2.5-4.6) mg/dL Magnesium (1.7-2.8) mg/dL Blood Type O POSITIVE Antibody Screen NEGATIVE Crossmatch IS Only See Detail ABX Reporting Has patient been on IV antibiotics over the past 48 hours?: No Sepsis Event Note (H) - Evaluation Current Stage of Sepsis: Ruled out Assessment/Plan - Problem List (1) Closed right hip fracture Impression: 10/04, it is day 1 after the operation, patient report her pain is under control, will continue physical therapist and occupational therapist, We will continue f ollow-up with orthopedic surgeon. as well as social work for disposition planning. (2)Hypotension 10/04 Patient systolic blood pressure was down to the 68. Patient had perfusion with intravenous IV fluids, patient's home blood pressure was holding. Is a likely multiple effect combination, patient has history of cardiomyopathy with ICD, patient hemoglobin significantly drop because of active blood loss from the surgeon surgery, and patient also has dehydration. After perfusion, patient's systolic blood pressure is on 97 now, patient is asymptomatic for her hypotension. We will continue hydration with intravenous IV fluids, with will give the patient 1 units of the blood for her acute blood loss. (3)anemia 10/04 Patient hemoglobin is 7.8 on today, patient had a hemoglobin 12.9 in the admission, it is likely from patient active blood loss from surgery, patient will have 1 units of blood today, we will continue H& H to monitor patient hemog lobin. (4) History of cardiomyopathy Conclusion/Plan: 10/04 her new echocardiogram revealed a preserved ejection fraction. She is an ICD in place. She currently appears euvolemic on exam. We will continue her home medications. And continue telemetry and vital signs monitor patient (5) AICD (automatic cardioverter/defibrillator) present Conclusion/Plan: 10/04, stable,EKG reveals a paced rhythm. Monitor on telemetry. (6) HTN (hypertension) Conclusion/Plan: 10/04, systolic blood pressure is 97, will hold home blood pressure medicine now. (7) History of stroke Conclusion/Plan: We will continue aspirin and Lipitor (8) Hypothyroidism Conclusion/Plan: Will check TSH, Continue Synthroid. Qualifiers: Encounter type: initial encounter Qualified Code(s): S72.001A - Fracture of unspecified part of neck of right femur, initial encounter for closed fracture
[2019-10-05] MEDS: ACETAMINOPHEN 325 MG TABLET PO PRN (14:34)
[2019-10-05 15:30] LABS: HGB - HEMOGLOBIN 9.8 g/dL (12.0-16.0)
--- NOTE | 2019-10-05 17:26 | PROVIDER PROGRESS NOTE ---
Subjective - General Admit Date: 10/03/19 Procedure Date: 10/04/19 Post Op Days: 1 - Review of Systems Wound/Incisions: positive: Dressing dry and intact Musculoskeletal: positive: Other (Her pain is well controlled to her right hip. She states she has very little pain to her right hip) All Other Systems: positive: Reviewed and negative Objective - Patient Data Vital Signs: Vital Signs x48h Temp Pulse Pulse Pulse Resp BP BP 10/05/19 16:14 37.1 C 96 20 10/05/19 12:15 37.2 C 104 H 17 97/50 L 10/05/19 11:45 104 H 10/05/19 11:41 37.3 C 94 16 92/40 L 10/05/19 11:40 104 H 10/05/19 09:32 37 C 97 16 97/54 L BP BP Pulse Ox 10/05/19 16:14 99/46 L 94 10/05/19 12:15 10/05/19 11:45 97/50 L 10/05/19 11:41 98 10/05/19 11:40 97/50 L 10/05/19 09:32 Weight: Weight 10/03/19 10/04/19 10/05/19 23:59 23:59 23:59 Weight (kg) 48 kg Intake & Output: Intake and Output Totals x24h 10/03/19 10/04/19 10/05/19 23:59 23:59 23:59 Intake Total 3868.334 3487.666 Output Total 40 1100 1250 Balance -40 2768.334 2237.666 - Lab Results Lab Results: 10/05/19 15:06 10/05/19 05:25 Other Lab Results: Lab Results x24hrs 10/05/19 10/05/19 10/05/19 Range/Units 15:06 05:25 05:25 WBC 6.4 (4.8-10.8) x10^3/uL RBC 2.45 L (4.20-5.40) 10^6/uL Hgb 9.8 L 7.8 L (12.0-16.0) g/dL Hct 29.2 L 24.6 L (37.0-47.0) % MCV 100.4 H (81.0-99.0) fL MCH 31.8 H (27.0-31.0) pg MCHC 31.7 L (32.0-36.0) g/dL RDW 13.2 (12.0-15.0) % Plt Count 100 L (130-450) 10^3/uL MPV 10.0 (7.9-10.8) fL Neut # (Auto) 4.8 (1.5-6.6) 10^3/uL Lymph # (Auto) 0.8 L (1.5-3.5) 10^3/uL [place] # (Auto) 0.9 (0.0-1.0) 10^3/uL Eos # (Auto) 0.0 (0.0-0.7) 10^3/uL Baso # (Auto) 0.0 (0.0-0.1) 10^3/uL Absolute Nucleated RBC 0.00 x10^3/uL Nucleated RBC % 0.0 /100WBC Sodium 139 (135-145) mmol/L Potassium 3.5 (3.5-5.0) mmol/L Chloride 113 H (101-111) mmol/L Carbon Dioxide 20 L (21-32) mmol/L Anion Gap 6.0 (6-13) BUN 13 (6-20) mg/dL Creatinine 0.4 (0.4-1.0) mg/dL Estimated GFR (MDRD) 151 (>89) Glucose 103 H (70-100) mg/dL Calcium 7.0 L (8.5-10.3) mg/dL Phosphorus 2.0 L (2.5-4.6) mg/dL Magnesium 1.9 (1.7-2.8) mg/dL Blood Type Antibody Screen Crossmatch IS Only 10/05/19 10/03/19 Range/Units 00:15 23:58 WBC (4.8-10.8) x10^3/uL RBC (4.20-5.40) 10^6/uL Hgb 8.2 L (12.0-16.0) g/dL Hct 24.7 L (37.0-47.0) % MCV (81.0-99.0) fL MCH (27.0-31.0) pg MCHC (32.0-36.0) g/dL RDW (12.0-15.0) % Plt Count (130-450) 10^3/uL MPV (7.9-10.8) fL Neut # (Auto) (1.5-6.6) 10^3/uL Lymph # (Auto) (1.5-3.5) 10^3/uL [place] # (Auto) (0.0-1.0) 10^3/uL Eos # (Auto) (0.0-0.7) 10^3/uL Baso # (Auto) (0.0-0.1) 10^3/uL Absolute Nucleated RBC x10^3/uL Nucleated RBC % /100WBC Sodium (135-145) mmol/L Potassium (3.5-5.0) mmol/L Chloride (101-111) mmol/L Carbon Dioxide (21-32) mmol/L Anion Gap (6-13) BUN (6-20) mg/dL Creatinine (0.4-1.0) mg/dL Estimated GFR (MDRD) (>89) Glucose (70-100) mg/dL Calcium (8.5-10.3) mg/dL Phosphorus (2.5-4.6) mg/dL Magnesium (1.7-2.8) mg/dL Blood Type O POSITIVE Antibody Screen NEGATIVE Crossmatch IS Only See Detail - Current Medications Current Medications: Current Medications Generic Name Dose Route Start Last Admin Trade Name Freq PRN Reason Stop Dose Admin Acetaminophen 650 - 975 mg 10/04/19 13:42 10/05/19 14:34 Tylenol PO 650 mg Q4HR PRN Administration PAIN Aspirin 325 mg 10/04/19 17:00 10/05/19 17:21 Karina PO 325 mg BIDWM SAM Administration Atorvastatin Calcium 10 mg 10/04/19 21:00 10/04/19 21:57 Lipitor PO Not Given QPM [facility] Calcium Carbonate/Glycine 500 mg 10/04/19 21:00 10/05/19 08:37 Tums PO 500 mg BID [facility] Administration Cholecalciferol 50 mcg 10/05/19 09:00 10/05/19 08:35 Vitamin D3 PO 50 mcg DAILY [facility] Administration Heparin Sodium (Porcine) 5,000 unit 10/03/19 21:00 10/05/19 08:43 SUBQ 5,000 unit BID [facility] Administration Lactobacillus Rhamnosus 1 cap 10/05/19 09:00 10/05/19 08:36 Culturelle PO 1 cap DAILY [facility] Administration Levothyroxine Sodium 100 mcg 10/04/19 09:00 10/05/19 08:37 Synthroid PO 100 mcg DAILY [facility] Administration Morphine Sulfate 2 mg 10/03/19 20:14 10/05/19 11:17 Morphine (Carpuject) IVP 2 mg Q2HR PRN Administration Pain 8 to 10 Oxycodone HCl 5 mg 10/04/19 13:42 10/05/19 02:54 Roxicodone PO 5 mg Q6H PRN Administration PAIN Sodium Chloride 10 ml 10/04/19 17:00 10/05/19 17:21 Normal Saline Flush 0.9% IVP 10 ml 0100,0900,1700 SAM Administration - Physical Exam Wound/Incisions: positive: Healing well, Dressing dry and intact General Appearance: positive: No acute distress Extremities: positive: Other (Her pain is well controlled to her right hip. She states she has very little pain to her right hip the right leg shows no clinical deformity. There is some swelling to the thigh, no sign of hematoma. Neurovascular status is intact to right leg. She is sitting in a chair comfort ably.) Impression/Plan - Problem List Problem List: 1. Displaced basilar femoral neck fracture She is doing well following open reduction internal fixation of the right hip fracture with intramedullary nail and hip screw. Physical and Occupational Therapy has been started and should be progressed each day. She most likely will need a jail facility post hospital discharge. I spoke to her son over the telephone and explained her care and aftercare from the hospital. #2 she does have an anemia and this is largely due to the fracture and to a much smaller degree the surgery but she had rather low blood loss.
[2019-10-05] MEDS: ATORVASTATIN 10 MG TABLET PO SCH (20:19)
[2019-10-05] MEDS ORDERED: SODIUM CHLORIDE 0.9% 1,000 ML IV ONE (20:35)
[2019-10-06 05:39] LABS: BASOPHILS % (AUTO) 0.5 %; EOSINOPHILS # (AUTO) 0.2 10^3/uL (0.0-0.7); EOSINOPHILS % (AUTO) 2.1 %; HGB - HEMOGLOBIN 9.4 g/dL (12.0-16.0); LYMPHOCYTES # (AUTO) 0.9 10^3/uL (1.5-3.5); LYMPHOCYTES % (AUTO) 10.9 %; MEAN CORPUSCULAR HEMOGLOBIN 30.4 pg (27.0-31.0); MEAN CORPUSCULAR HGB CONC 32.8 g/dL (32.0-36.0); MEAN CORPUSCULAR VOLUME 92.9 fL (81.0-99.0); MEAN PLATELET VOLUME 9.3 fL (7.9-10.8); MONOCYTES # (AUTO) 0.8 10^3/uL (0.0-1.0); MONOCYTES % (AUTO) 10.8 %; NEUTROPHILS # (AUTO) 5.9 10^3/uL (1.5-6.6); NEUTROPHILS % (AUTO) 75.3 %; PLT - PLATELET COUNT 93 10^3/uL (130-450); RED BLOOD COUNT 3.09 10^6/uL (4.20-5.40); RED CELL DISTRIBUTION WIDTH 14.6 % (12.0-15.0); WHITE BLOOD COUNT 7.8 x10^3/uL (4.8-10.8)
[2019-10-06 05:52] LABS: CALCIUM 7.9 mg/dL (8.5-10.3); CREATININE 0.4 mg/dL (0.4-1.0); PHOSPHORUS 2.2 mg/dL (2.5-4.6)
[2019-10-06] MEDS ORDERED: POTASSIUM CHLORIDE 20 MEQ TABLET PO ONE (08:00)
[2019-10-06] MEDS ORDERED: CALCIUM GLUCONATE 1,000 MG in SODIUM CHLORIDE 0.9% 50 ML IV ONE (08:00)
[2019-10-06] MEDS: ASPIRIN 325 MG TABLET PO SCH ×2 (08:39→18:31)
[2019-10-06] MEDS: LACTOBACILLUS RHAMNOSUS GG CAPSULE PO SCH (08:39)
[2019-10-06] MEDS: CALCIUM CARBONATE CHEW 500 MG TABLET PO SCH ×2 (08:39→21:20)
[2019-10-06] MEDS: lisinopriL 5 MG TABLET PO SCH (08:39)
[2019-10-06] MEDS: NEUTRA-PHOS 250 MG TABLET PO SCH ×3 (08:39→18:31)
[2019-10-06] MEDS: DOCUSATE SODIUM 100 MG CAPSULE PO PRN ×2 (08:39→21:20)
[2019-10-06] MEDS: carvediloL 12.5 MG TABLET PO SCH ×2 (08:40→21:22)
[2019-10-06] MEDS: SODIUM CHLORIDE FLUSH 0.9% 10 ML SYRINGE IVP SCH ×2 (08:40→18:32)
[2019-10-06] MEDS: LEVOTHYROXINE 100 MCG TABLET PO SCH (08:40)
[2019-10-06] MEDS: CHOLECALCIFEROL 25 MCG TABLET PO SCH (08:50)
[2019-10-06] MEDS ORDERED: carvediloL 12.5 MG TABLET PO SCH (09:00)
[2019-10-06] MEDS ORDERED: POTASSIUM PHOSPHATE 15 MMOL in SODIUM CHLORIDE 0.9% 250 ML IV ONE (10:00)
--- NOTE | 2019-10-06 11:24 | PROVIDER PROGRESS NOTE ---
Assessment/Plan - Problem List (1) Closed right hip fracture Qualifiers: Encounter type: initial encounter Qualified Code(s): S72.001A - Fracture of unspecified part of neck of right femur, initial encounter for closed fracture Assessment/Plan: 10/05, it is day 2 after the operation, patient doing better today, she is eating better, also she report her pain in surgery site is better controlled, will continue physical/occupational therapist, continue pain control, continue aspiration twice daily per orthopedic surgeon for DVT prophylaxis, continue follow-up with orthopedic surgeon. hopefully pt can be d/c on tomorrow to Rehab. 10/04, it is day 1 after the operation, patient report her pain is under control, will continue physical therapist and occupational therapist, We will continue follow-up with orthopedic surgeon. as well as social work for disposition planning. (2)Hypotension 10/05, hypotension is resolved, patient has systolic blood pressure 126, will resume patient home blood pressure medicine lisinopril and Coreg, will continue vital signs monitor 10/04 Patient systolic blood pressure was down to the 68. Patient had perfusion with intravenous IV fluids, patient's home blood pressure was holding. Is a likely multiple effect combination, patient has history of cardiomyopathy with ICD, patient hemoglobin significantly drop because of active blood loss from the surgeon surgery, and patient also has dehydration. After perfusion, patient's systolic blood pressure is on 97 now, patient is asymptomatic for her hypotension. We will continue hydration with intravenous IV fluids, with will give the p atient 1 units of the blood for her acute blood loss. (3)anemia 10/05, patient hemoglobin is stable, today's hemoglobin 9.4, will continue CBC monitor patient 10/04 Patient hemoglobin is 7.8 on today, patient had a hemoglobin 12.9 in the admission, it is likely from patient active blood loss from surgery, patient will have 1 units of blood today, we will continue H& H to monitor patient hemoglobin. (4) History of cardiomyopathy Conclusion/Plan: 10/05, stable, patient had stable blood pressure today, patient denies any chest pain, will continue work with physical therapist and occupational therapist, And will resume home blood pressure medicine 10/04 her new echocardiogram revealed a preserved ejection fraction. She is an ICD in place. She currently appears euvolemic on exam. We will continue her home medications. And continue telemetry and vital signs monitor patient (5) AICD (automatic cardioverter/defibrillator) present Conclusion/Plan: 10/05, stable 10/04, stable,EKG reveals a paced rhythm. Monitor on telemetry. (6) HTN (hypertension) Conclusion/Plan: 10/05, stable, will resume home blood pressure medicine 10/04, systolic blood pressure is 97, will hold home blood pressure medicine now. (7) History of stroke Conclusion/Plan: We will continue aspirin and Lipitor (8) Hypothyroidism Conclusion/Plan: 10/05, TSH is normal, continue home Synthyroid Will check TSH, Continue Synthroid. - Current Meds Current Meds: Current Medications Generic Name Dose Route Start Last Admin Trade Name Freq PRN Reason Stop Dose Admin Acetaminophen 650 - 975 mg 10/04/19 13:42 10/05/19 14:34 Tylenol PO 650 mg Q4HR PRN Administration PAIN Aspirin 325 mg 10/04/19 17:00 10/06/19 08:39 Karina PO 325 mg BIDWM SAM Administration Atorvastatin Calcium 10 mg 10/04/19 21:00 10/05/19 20:19 Lipitor PO 10 mg QPM SAM Administration Calcium Carbonate/Glycine 500 mg 10/04/19 21:00 10/06/19 08:39 Tums PO 500 mg BID SAM Administration Carvedilol 12.5 mg 10/06/19 09:00 10/06/19 08:40 Coreg PO 12.5 mg BID SAM Administration Cholecalciferol 50 mcg 10/05/19 09:00 10/06/19 08:50 Vitamin D3 PO 50 mcg DAILY SAM Administration Docusate Sodium 100 mg 10/04/19 13:42 10/06/19 08:39 Colace 100mg Capsule PO 100 mg BID PRN Administration Constipation Potassium Phosphate 15 mmol/ 255 mls @ 42.5 mls/hr 10/06/19 10:00 10/06/19 09:04 Sodium Chloride IV 10/06/19 15:59 42.5 mls/hr ONCE ONE Administration Lactobacillus Rhamnosus 1 cap 10/05/19 09:00 10/06/19 08:39 Culturelle PO 1 cap DAILY SAM Administration Levothyroxine Sodium 100 mcg 10/04/19 09:00 10/06/19 08:40 Synthroid PO 100 mcg DAILY SAM Administration Lisinopril 2.5 mg 10/06/19 09:00 10/06/19 08:39 Zestril PO 2.5 mg DAILY SAM Administration Morphine Sulfate 2 mg 10/03/19 20:14 10/05/19 11:17 Morphine (Carpuject) IVP 2 mg Q2HR PRN Administration Pain 8 to 10 Oxycodone HCl 5 mg 10/04/19 13:42 10/05/19 02:54 Roxicodone PO 5 mg Q6H PRN Administration PAIN Sodium Chloride 10 ml 10/04/19 17:00 10/06/19 08:40 Normal Saline Flush 0.9% IVP 10 ml 0100,0900,1700 SAM Administration Sodium Phosphate 250 mg 10/06/19 08:00 10/06/19 08:39 K-Phos Neutral PO 250 mg TIDWM SAM Administration - Lab Result Fish Bone Diagrams: 10/06/19 05:30 10/06/19 05:30 - Additional Planning My Orders: My Active Orders 10/06/19 08:00 Neutra-Phos [K-Phos Neutral] 250 mg PO TIDWM 10/06/19 09:00 carvediloL [Coreg] 12.5 mg PO BID lisinopriL [Zestril] 2.5 mg PO DAILY 10/06/19 10:47 Telemetry-Discontinue [RC] .ONCE Subjective - Subjective Patient Reports: Feeling Better Nursing Reports: No Complaints Objective Vital Signs: Vital Signs - 24 hr 10/05/19 10/05/19 10/05/19 11:40 11:41 11:45 Temperature 37.3 C Heart Rate Heart Rate [ 94 Brachial] Heart Rate [ Radial] Heart Rate [ 104 H 104 H Sitting] Respiratory 16 Rate Blood Pressure Blood Pressure 92/40 L [Left Brachial artery] Blood Pressure [Right Brachial artery] Blood Pressure 97/50 L 97/50 L [Sitting] O2 Saturation 98 10/05/19 10/05/19 10/05/19 12:15 16:14 20:24 Temperature 37.2 C 37.1 C 36.8 C Heart Rate 104 H Heart Rate [ 96 83 Brachial] Heart Rate [ Radial] Heart Rate [ Sitting] Respiratory 17 20 24 Rate Blood Pressure 97/50 L Blood Pressure 87/34 L [Left Brachial artery] Blood Pressure 99/46 L [Right Brachial artery] Blood Pressure [Sitting] O2 Saturation 94 94 10/05/19 10/05/19 10/05/19 20:25 20:27 22:20 Temperature Heart Rate Heart Rate [ 84 82 Brachial] Heart Rate [ 84 Radial] Heart Rate [ Sitting] Respiratory Rate Blood Pressure Blood Pressure 83/40 L 80/42 L [Left Brachial artery] Blood Pressure 101/54 L [Right Brachial artery] Blood Pressure [Sitting] O2 Saturation 10/05/19 10/06/19 10/06/19 23:50 05:00 09:00 Temperature 36.7 C 37.0 C 37.1 C Heart Rate Heart Rate [ Brachial] Heart Rate [ 81 85 89 Radial] Heart Rate [ Sitting] Respiratory 14 16 18 Rate Blood Pressure Blood Pressure [Left Brachial artery] Blood Pressure 113/62 126/59 L 125/57 L [Right Brachial artery] Blood Pressure [Sitting] O2 Saturation 98 97 97 Oxygen O2 Source [With Activity] Room air O2 Source [Without Activity] Room air O2 Source Room air I&O (Last 24 Hrs): Intake and Output Totals x24h 10/04/19 10/05/19 10/06/19 23:59 23:59 23:59 Intake Total 3868.334 5057.666 540 Output Total 1100 1325 300 Balance 2768.334 3732.666 240 General: Alert, Oriented x3, No acute distress HEENT: Atraumatic Neck: Supple Lymphatic: no adenopathy Neuro: Alert, Non Focal, Oriented Times 3 Cardiovascular: Regular rate, Normal S1, Normal S2 Respiratory: Chest non-tender, No respiratory distress, Breath sounds nml Abdomen: Normal bowel sounds, Soft, No tenderness Extremities: Normal pulses - Results Results: Laboratory Results WBC 7.8 x10^3/uL (4.8-10.8) 10/06/19 05:30 RBC 3.09 10^6/uL (4.20-5.40) L 10/06/19 05:30 Hgb 9.4 g/dL (12.0-16.0) L 10/06/19 05:30 Hct 28.7 % (37.0-47.0) L 10/06/19 05:30 MCV 92.9 fL (81.0-99.0) 10/06/19 05:30 MCH 30.4 pg (27.0-31.0) 10/06/19 05:30 MCHC 32.8 g/dL (32.0-36.0) 10/06/19 05:30 RDW 14.6 % (12.0-15.0) 10/06/19 05:30 Plt Count 93 10^3/uL (130-450) L 10/06/19 05:30 MPV 9.3 fL (7.9-10.8) 10/06/19 05:30 Neut # (Auto) 5.9 10^3/uL (1.5-6.6) 10/06/19 05:30 Lymph # (Auto) 0.9 10^3/uL (1.5-3.5) L 10/06/19 05:30 [place] # (Auto) 0.8 10^3/uL (0.0-1.0) 10/06/19 05:30 Eos # (Auto) 0.2 10^3/uL (0.0-0.7) 10/06/19 05:30 Baso # (Auto) 0.0 10^3/uL (0.0-0.1) 10/06/19 05:30 Absolute Nucleated RBC 0.00 x10^3/uL 10/06/19 05:30 Nucleated RBC % 0.0 /100WBC 10/06/19 05:30 PT 12.9 secs (9.9-12.6) H 10/03/19 19:44 INR 1.1 (0.8-1.2) 10/03/19 19:44 Sodium 139 mmol/L (135-145) 10/06/19 05:30 Potassium 3.2 mmol/L (3.5-5.0) L 10/06/19 05:30 Chloride 112 mmol/L (101-111) H 10/06/19 05:30 Carbon Dioxide 22 mmol/L (21-32) 10/06/19 05:30 Anion Gap 5.0 (6-13) L 10/06/19 05:30 BUN 11 mg/dL (6-20) 10/06/19 05:30 Creatinine 0.4 mg/dL (0.4-1.0) 10/06/19 05:30 Estimated GFR (MDRD) 151 (>89) 10/06/19 05:30 Glucose 101 mg/dL (70-100) H 10/06/19 05:30 Calcium 7.9 mg/dL (8.5-10.3) L 10/06/19 05:30 Phosphorus 2.2 mg/dL (2.5-4.6) L 10/06/19 05:30 Magnesium 2.0 mg/dL (1.7-2.8) 10/06/19 05:30 Total Bilirubin 0.6 mg/dL (0.2-1.0) 10/03/19 19:44 AST 20 IU/L (10-42) 10/03/19 19:44 ALT 20 IU/L (10-60) 10/03/19 19:44 Alkaline Phosphatase 52 IU/L (42-121) 10/03/19 19:44 Total Protein 6.9 g/dL (6.7-8.2) 10/03/19 19:44 Albumin 4.2 g/dL (3.2-5.5) 10/03/19 19:44 Globulin 2.7 g/dL (2.1-4.2) 10/03/19 19:44 Albumin/Globulin Ratio 1.6 (1.0-2.2) 10/03/19 19:44 Lipase 41 U/L (22-51) 10/03/19 19:44 TSH 1.39 uIU/mL (0.34-5.60) 10/06/19 05:30 Coronavirus (PCR) NEGATIVE 10/05/19 11:30 Blood Type O POSITIVE 10/03/19 23:58 Antibody Screen NEGATIVE 10/03/19 23:58 Crossmatch IS Only See Detail 10/03/19 23:58 - Procedures Procedures: Procedures REPOSITION LEFT UPPER FEMUR WITH INTRAMED FIX, OPEN APPROACH (08/30/15) TRANSFUSE NONAUT RED BLOOD CELLS IN PERIPH VEIN, PERC (08/30/15) Sepsis Event Note (H) - Evaluation Current Stage of Sepsis: Ruled out ABX Reporting Has patient been on IV antibiotics over the past 48 hours?: No Current Medications - Current Medications Current Medications: Active Medications Acetaminophen (Tylenol) 650 - 975 mg PO Q4HR PRN PRN Reason: PAIN Last Admin: 10/05/19 14:34 Dose: 650 mg Documented by: Aspirin (Karina) 325 mg PO BIDWM [facility] Last Admin: 10/06/19 08:39 Dose: 325 mg Documented by: Atorvastatin Calcium (Lipitor) 10 mg PO QPM [facility] Last Admin: 10/05/19 20:19 Dose: 10 mg Documented by: Calcium Carbonate/Glycine (Tums) 500 mg PO BID [facility] Last Admin: 10/06/19 08:39 Dose: 500 mg Documented by: Carvedilol (Coreg) 12.5 mg PO BID [facility] Last Admin: 10/06/19 08:40 Dose: 12.5 mg Documented by: Cholecalciferol (Vitamin D3) 50 mcg PO DAILY [facility] Last Admin: 10/06/19 08:50 Dose: 50 mcg Documented by: Docusate Sodium (Colace 100mg Capsule) 100 mg PO BID PRN PRN Reason: Constipation Last Admin: 10/06/19 08:39 Dose: 100 mg Documented by: Acetaminophen (Ofirmev) 100 mls @ 400 mls/hr IV Q6HR PRN PRN Reason: PAIN Potassium Phosphate 15 mmol/ (Sodium Chloride) 255 mls @ 42.5 mls/hr IV ONCE ONE Stop: 10/06/19 15:59 Last Admin: 10/06/19 09:04 Dose: 42.5 mls/hr Documented by: Lactobacillus Rhamnosus (Culturelle) 1 cap PO DAILY [facility] Last Admin: 10/06/19 08:39 Dose: 1 cap Documented by: Levothyroxine Sodium (Synthroid) 100 mcg PO DAILY [facility] Last Admin: 10/06/19 08:40 Dose: 100 mcg Documented by: Lisinopril (Zestril) 2.5 mg PO DAILY [facility] Last Admin: 10/06/19 08:39 Dose: 2.5 mg Documented by: Morphine Sulfate (Morphine (Carpuject)) 2 mg IVP Q2HR PRN PRN Reason: Pain 8 to 10 Last Admin: 10/05/19 11:17 Dose: 2 mg Documented by: Ondansetron HCl (Zofran Odt) 4 mg TL Q6HR PRN PRN Reason: Nausea / Vomiting Ondansetron HCl (Zofran Inj) 4 mg IVP Q6HR PRN PRN Reason: Nausea / Vomiting Oxycodone HCl (Roxicodone) 5 mg PO Q6H PRN PRN Reason: PAIN Last Admin: 10/05/19 02:54 Dose: 5 mg Documented by: Sodium Chloride (Normal Saline Flush 0.9%) 10 ml IVP 0100,0900,1700 [facility] Last Admin: 10/06/19 08:40 Dose: 10 ml Documented by: Sodium Chloride (Normal Saline Flush 0.9%) 10 ml IVP PRN PRN PRN Reason: NEEDED PER PROVIDER ORDERS Sodium Phosphate (K-Phos Neutral) 250 mg PO TIDWM [facility] Last Admin: 10/06/19 08:39 Dose: 250 mg Documented by: Aspirin [Aspir 81] 81 mg PO QPM 03/25/15 Levothyroxine [Synthroid] 100 mcg PO QDAC 03/25/15 Calcium Carbonate [Calcium] 600 mg PO BID 03/26/15 Fluticasone [Flonase] 1 sprays LINDY BID 09/01/15 Lisinopril [Zestril] 2.5 mg PO DAILY 10/04/19 Rosuvastatin Calcium [Crestor] 5 mg PO MOWEFR@0900 10/04/19 carvediloL [Carvedilol] 12.5 mg PO BID 10/04/19
[2019-10-06] MEDS: ACETAMINOPHEN 325 MG TABLET PO PRN ×2 (12:30→21:25)
--- NOTE | 2019-10-06 15:44 | PROVIDER PROGRESS NOTE ---
Subjective - General Admit Date: 10/03/19 Procedure Date: 10/04/19 Post Op Days: 2 - Review of Systems Wound/Incisions: positive: Healing well, Dressing dry and intact All Other Systems: positive: Reviewed and negative Objective - Patient Data Vital Signs: Vital Signs x48h Temp Pulse Resp BP Pulse Ox 10/06/19 09:00 37.1 C 89 18 125/57 L 97 Intake & Output: Intake and Output Totals x24h 10/04/19 10/05/19 10/06/19 23:59 23:59 23:59 Intake Total 3868.334 5057.666 1035 Output Total 1100 1325 300 Balance 2768.334 3732.666 735 - Lab Results Lab Results: 10/06/19 05:30 10/06/19 05:30 Other Lab Results: Lab Results x24hrs 10/06/19 10/06/19 10/06/19 Range/Units 05:30 05:30 05:30 WBC 7.8 (4.8-10.8) x10^3/uL RBC 3.09 L (4.20-5.40) 10^6/uL Hgb 9.4 L (12.0-16.0) g/dL Hct 28.7 L (37.0-47.0) % MCV 92.9 (81.0-99.0) fL MCH 30.4 (27.0-31.0) pg MCHC 32.8 (32.0-36.0) g/dL RDW 14.6 (12.0-15.0) % Plt Count 93 L (130-450) 10^3/uL MPV 9.3 (7.9-10.8) fL Neut # (Auto) 5.9 (1.5-6.6) 10^3/uL Lymph # (Auto) 0.9 L (1.5-3.5) 10^3/uL Millard # (Auto) 0.8 (0.0-1.0) 10^3/uL Eos # (Auto) 0.2 (0.0-0.7) 10^3/uL Baso # (Auto) 0.0 (0.0-0.1) 10^3/uL Absolute Nucleated RBC 0.00 x10^3/uL Nucleated RBC % 0.0 /100WBC Sodium 139 (135-145) mmol/L Potassium 3.2 L (3.5-5.0) mmol/L Chloride 112 H (101-111) mmol/L Carbon Dioxide 22 (21-32) mmol/L Anion Gap 5.0 L (6-13) BUN 11 (6-20) mg/dL Creatinine 0.4 (0.4-1.0) mg/dL Estimated GFR (MDRD) 151 (>89) Glucose 101 H (70-100) mg/dL Calcium 7.9 L (8.5-10.3) mg/dL Phosphorus 2.2 L (2.5-4.6) mg/dL Magnesium 2.0 (1.7-2.8) mg/dL TSH 1.39 (0.34-5.60) uIU/mL Coronavirus (PCR) 10/05/19 Range/Units 11:30 WBC (4.8-10.8) x10^3/uL RBC (4.20-5.40) 10^6/uL Hgb (12.0-16.0) g/dL Hct (37.0-47.0) % MCV (81.0-99.0) fL MCH (27.0-31.0) pg MCHC (32.0-36.0) g/dL RDW (12.0-15.0) % Plt Count (130-450) 10^3/uL MPV (7.9-10.8) fL Neut # (Auto) (1.5-6.6) 10^3/uL Lymph # (Auto) (1.5-3.5) 10^3/uL Millard # (Auto) (0.0-1.0) 10^3/uL Eos # (Auto) (0.0-0.7) 10^3/uL Baso # (Auto) (0.0-0.1) 10^3/uL Absolute Nucleated RBC x10^3/uL Nucleated RBC % /100WBC Sodium (135-145) mmol/L Potassium (3.5-5.0) mmol/L Chloride (101-111) mmol/L Carbon Dioxide (21-32) mmol/L Anion Gap (6-13) BUN (6-20) mg/dL Creatinine (0.4-1.0) mg/dL Estimated GFR (MDRD) (>89) Glucose (70-100) mg/dL Calcium (8.5-10.3) mg/dL Phosphorus (2.5-4.6) mg/dL Magnesium (1.7-2.8) mg/dL TSH (0.34-5.60) uIU/mL Coronavirus (PCR) NEGATIVE - Current Medications Current Medications: Current Medications Generic Name Dose Route Start Last Admin Trade Name Freq PRN Reason Stop Dose Admin Acetaminophen 650 - 975 mg 10/04/19 13:42 10/06/19 12:30 Tylenol PO 650 mg Q4HR PRN Administration PAIN Aspirin 325 mg 10/04/19 17:00 10/06/19 08:39 Karina PO 325 mg BIDWM SAM Administration Atorvastatin Calcium 10 mg 10/04/19 21:00 10/05/19 20:19 Lipitor PO 10 mg QPM SAM Administration Calcium Carbonate/Glycine 500 mg 10/04/19 21:00 10/06/19 08:39 Tums PO 500 mg BID SAM Administration Carvedilol 12.5 mg 10/06/19 09:00 10/06/19 08:40 Coreg PO 12.5 mg BID SAM Administration Cholecalciferol 50 mcg 10/05/19 09:00 10/06/19 08:50 Vitamin D3 PO 50 mcg DAILY SAM Administration Docusate Sodium 100 mg 10/04/19 13:42 10/06/19 08:39 Colace 100mg Capsule PO 100 mg BID PRN Administration Constipation Potassium Phosphate 15 mmol/ 255 mls @ 42.5 mls/hr 10/06/19 10:00 10/06/19 15:05 Sodium Chloride IV 10/06/19 15:59 Infused ONCE ONE Infusion Lactobacillus Rhamnosus 1 cap 10/05/19 09:00 10/06/19 08:39 Culturelle PO 1 cap DAILY SAM Administration Levothyroxine Sodium 100 mcg 10/04/19 09:00 10/06/19 08:40 Synthroid PO 100 mcg DAILY SAM Administration Lisinopril 2.5 mg 10/06/19 09:00 10/06/19 08:39 Zestril PO 2.5 mg DAILY SAM Administration Morphine Sulfate 2 mg 10/03/19 20:14 10/05/19 11:17 Morphine (Carpuject) IVP 2 mg Q2HR PRN Administration Pain 8 to 10 Oxycodone HCl 5 mg 10/04/19 13:42 10/05/19 02:54 Roxicodone PO 5 mg Q6H PRN Administration PAIN Sodium Chloride 10 ml 10/04/19 17:00 10/06/19 08:40 Normal Saline Flush 0.9% IVP 10 ml 0100,0900,1700 SAM Administration Sodium Phosphate 250 mg 10/06/19 08:00 10/06/19 12:30 K-Phos Neutral PO 250 mg TIDWM SAM Administration - Physical Exam Wound/Incisions: positive: Healing well, Dressing dry and intact Impression/Plan - Problem List Problem List: . Femoral neck fracture right hip: Continue her rehab with physical and Occupational Therapy. [facility]. She is making progress. Continue deep venous thrombosis prophylaxis with aspirin for approximately 6 weeks.
[2019-10-06] MEDS: ATORVASTATIN 10 MG TABLET PO SCH (21:20)
[2019-10-07] MEDS: SODIUM CHLORIDE FLUSH 0.9% 10 ML SYRINGE IVP SCH ×2 (02:40→08:28)
[2019-10-07] MEDS: ACETAMINOPHEN 325 MG TABLET PO PRN (04:02)
[2019-10-07 06:13] LABS: BASOPHILS % (AUTO) 0.5 %; EOSINOPHILS # (AUTO) 0.2 10^3/uL (0.0-0.7); HGB - HEMOGLOBIN 9.7 g/dL (12.0-16.0); LYMPHOCYTES # (AUTO) 0.8 10^3/uL (1.5-3.5); LYMPHOCYTES % (AUTO) 10.8 %; MEAN CORPUSCULAR HGB CONC 34.3 g/dL (32.0-36.0); MEAN CORPUSCULAR VOLUME 93.4 fL (81.0-99.0); MEAN PLATELET VOLUME 9.8 fL (7.9-10.8); MONOCYTES # (AUTO) 0.8 10^3/uL (0.0-1.0); MONOCYTES % (AUTO) 10.5 %; NEUTROPHILS # (AUTO) 5.7 10^3/uL (1.5-6.6); NEUTROPHILS % (AUTO) 74.7 %; PLT - PLATELET COUNT 109 10^3/uL (130-450); RED BLOOD COUNT 3.03 10^6/uL (4.20-5.40); RED CELL DISTRIBUTION WIDTH 14.2 % (12.0-15.0); WHITE BLOOD COUNT 7.7 x10^3/uL (4.8-10.8)
[2019-10-07 06:25] LABS: CALCIUM 8.5 mg/dL (8.5-10.3); CREATININE 0.4 mg/dL (0.4-1.0); MAGNESIUM 2.1 mg/dL (1.7-2.8); PHOSPHORUS 3.2 mg/dL (2.5-4.6)
[2019-10-07] MEDS ORDERED: PANTOPRAZOLE 40 MG TABLET PO SCH (08:00)
[2019-10-07 08:21] VITALS: BP 138/78
[2019-10-07] MEDS: ASPIRIN 325 MG TABLET PO SCH (08:22)
[2019-10-07] MEDS: lisinopriL 5 MG TABLET PO SCH (08:22)
[2019-10-07] MEDS: NEUTRA-PHOS 250 MG TABLET PO SCH (08:23)
[2019-10-07] MEDS: CALCIUM CARBONATE CHEW 500 MG TABLET PO SCH (08:23)
[2019-10-07] MEDS: carvediloL 12.5 MG TABLET PO SCH (08:23)
[2019-10-07] MEDS: CHOLECALCIFEROL 25 MCG TABLET PO SCH (08:23)
[2019-10-07] MEDS: LACTOBACILLUS RHAMNOSUS GG CAPSULE PO SCH (08:23)
[2019-10-07] MEDS: DOCUSATE SODIUM 100 MG CAPSULE PO PRN (08:25)
[2019-10-07] MEDS: LEVOTHYROXINE 100 MCG TABLET PO SCH (08:26)
--- NOTE | 2019-10-07 08:34 | Discharge Plan ---
"Discharge Plan for SNF / [facility] - Discharge Plan And Transition Orders Problem Reviewed?: Yes Disposition: 03 SNF DC/Xfer Condition: Stable Allergies and Adverse Reactions: Allergies Allergy/AdvReac Type Severity Reaction Status Date / Time levofloxacin [From Levaquin] Allergy Unknown Verified 10/03/19 19:14 meperidine HCl * Allergy Unknown Verified 10/03/19 19:14 [From Demerol] Penicillins Allergy Unknown Verified 10/03/19 19:14 perfume Allergy Unknown Verified 10/03/19 20:28 Sulfa (Sulfonamide Allergy Unknown Verified 10/03/19 19:14 Antibiotics) Health Concerns: s/p right hip fracture Plan of Treatment: pt is prescribed another 10 days bid of Aspirin 325 mg, total 14 days bid aspirin, for DVT prophylaxis in hospital. Pt may be re-assessed by Rehab medical provider for DVT prophylaxis and continue Aspirin upto 6 weeks. pt may continue PT/OT in Rehab. Care Goals: stabilization and healing of right hip injury Assessment: discussed the care plan with pt and pt's son, they understood and agreed. - SNF / SKILLED NURSING Transition Orders Admit to (Facility): [facility] Under the care of (Name): [facility] medical provider Discharge Diagnosis: closed right hip fracture, anemia, hx of cardiomyopathy, AICD, HTN, hx of stroke, hypothyroidism. Medicare Certification Statement: I certify that [facility] longterm care is medically necessary on a continuing basis for any of the conditions for which she/he is receiving care during hospitalization. Notify PCP of admission and forward orders to primary provider for signature. Weight on admission and: Daily Call PCP immediately if weight increases by: 2 kg Other Notification Orders: Call PCP immediately if patient develops dyspnea, chest pain/tightness or edema. House Bowel Program: Yes Additional Bowel Program Orders: If no BM after 2 days, nurse may give M.O.M. 30ml PO PRN and/or ducolax Supp 1 PA and/or CHARAN 250mg P.O., and/or senna 1-2 tabs PO. On day 3 nurse may give repeat above order until residents constipation is resolved. Annual Influenza Vaccine (between Dec 18 and July 17): Yes Two-step PPD per [facility] [phone] or approved exception documents: Yes Treatments & Other Orders: pt may followup with [facility] medical provider when she is arrival, followup with PT/OT, followup with orthopedics office in two weeks. Medication Orders: PLEASE REFER TO THE DISCHARGE MEDICATION LIST. Insulin Orders?: No - Medications New Prescriptions: Aspirin [Karina] 325 mg PO BIDWM #20 tablet Alendronate [Fosamax] 70 mg PO Q7D #1 tablet Pantoprazole [Protonix] 40 mg PO QDAC #10 tablet oxyCODONE [Roxicodone] 5 mg PO Q6H PRN #15 tablet PRN Reason: Pain Calcium Carbonate [Tums (Calcium Carbonate 500mg)] 500 mg PO BID #20 tablet Cholecalciferol (Vitamin D3) [Vitamin D3] 1,000 unit PO DAILY #10 capsule - Diet Type: Geriatric Texture: Regular Liquids: Thin May have monthly special meal: Yes - Therapies | Activity Therapy: Evaluation | Treat if indicated: PT, OT Rehabilitation Potential: Maximize functional status Activity: Activity as Tolerated"
--- NOTE | 2019-10-07 08:52 | DISCHARGE SUMMARY ---
"Discharge Summary Admit Date: 10/03/19 Discharge Date: 10/07/19 Discharging Provider: Rui Shen Primary Care Provider: Dr. Filomena Ring Condition at Discharge: Stable Discharge Disposition: 03 SNF DC/Xfer Discharge Facility Name: [facility] - DIAGNOSES Admission Diagnoses: (1) Fracture of femoral neck, right, closed (2) Preop cardiovascular exam (3) History of cardiomyopathy (4) AICD (automatic cardioverter/defibrillator) present (5) HTN (hypertension) (6) History of stroke (7) Hypothyroidism Discharge Diagnoses with Status of Each Condition: (1) Closed right hip fracture Progressed and improved. Patient was D/C to [facility] for continuing physical therapist and occupational therapist for healing of his right hip fracture and repair. Patient is a prescription aspirin 325 twice daily for another 10 days totally 14 days, Then patient may be assessed by rehab provider to determine if continue aspirin upto 6 weeks. Patient is prescribed calcium carbonate, vitamin D 3, Fosamax, and pain medication (2)Hypotension Resolved (3)anemia Stable. Patient had a 1 units of blood transfusion in the hospital (4) History of cardiomyopathy Stable and chronic (5) AICD (automatic cardioverter/defibrillator) present Stable And chronic (6) HTN (hypertension) Stable, continue home medication (7) History of stroke Stable (8) Hypothyroidism Stable - [facility] History of Present Illness: refer from Dr. Poon's HPI on 10/03/2019 This is a very pleasant 84-year-old female with a past medical history signifi cant for cardiomyopathy status post ICD placement who now has a preserved ejection fraction, hypothyroidism, history of stroke, osteoarthritis, prior history of left hip arthroplasty who presents today after having a fall at home. She states she was picking up a phone book when she fell on her right side and hit her right hip and right shoulder. He feels like her right leg gave out prior to her fall. She denied any syncope, chest pain, dizziness, headedness prior to the fall. The pain is located in the right groin . It is currently controlled after she received morphine in the emergency room and and a fascial illiaca block. She reports she has a history of osteoporosis and was previously on Fosamax but is now on Prolia and has had one dose. She had a prior left hip fracture and underwent intramedullary rodding with hip nail placement at our facility back in 2015. 1 year later, she had a left total hip arthroplasty at [facility]. She states that at baseline, she ambulates with a cane. She lives at home alone and is independent with her ADLs. She does not walk up a flight of stairs due to mobility issues but she reports no chest pain or dyspnea with any activity and she is able to walk across her one-story home without any problems. She has not had a stress test recently. She reports having angiograms in the past and denies a history of coronary artery disease. She denies taking Plavix but is taking 3 tablets of 81 mg aspirin a day. In the emergency department, imaging of the right hip was suggestive of a right femoral neck fracture. X-ray of the right humerus revealed no fracture. Given these findings, medicine was consulted for admission. I did discuss goals of care with the patient and her daughter and she would like to be a DNR. - CONSULTS | PROCEDURES Consultations: Dr. Sarbjit Newman Procedures: Right hip repair - HOSPITAL COURSE Hospital Course: Patient was admitted a fall in the home and right hip fracture. Patient was consulted with orthopedics. patient had right hip repair. patient had a 1 unit blood transfusion for her anemia. patient initially developed hypotension, patient was given perfusion And blood transfusion, then patient Hemodynamic was stabilized. Patient continue to have physical therapist and occupational therapist evaluation and treatment in hospital. Patient was discharged to rehab nursing home facility. - ALLERGIES Allergies/Adverse Reactions: Allergies Allergy/AdvReac Type Severity Reaction Status Date / Time levofloxacin [From Levaquin] Allergy Unknown Verified 10/03/19 19:14 meperidine HCl * Allergy Unknown Verified 10/03/19 19:14 [From Demerol] Penicillins Allergy Unknown Verified 10/03/19 19:14 perfume Allergy Unknown Verified 10/03/19 20:28 Sulfa (Sulfonamide Allergy Unknown Verified 10/03/19 19:14 Antibiotics) - MEDICATIONS Home Medications: Ambulatory Orders Medication Instructions Recorded Confirmed Aspirin [Aspir 81] 81 mg PO QPM 03/25/15 10/04/19 Levothyroxine [Synthroid] 100 mcg PO QDAC 03/25/15 10/04/19 Calcium Carbonate [Calcium] 600 mg PO BID 03/26/15 10/04/19 Fluticasone [Flonase] 1 sprays LINDY BID 09/01/15 10/04/19 Lisinopril [Zestril] 2.5 mg PO DAILY 10/04/19 10/04/19 Rosuvastatin Calcium [Crestor] 5 mg PO MOWEFR@0900 10/04/19 10/04/19 carvediloL [Carvedilol] 12.5 mg PO BID 10/04/19 10/04/19 Alendronate [Fosamax] 70 mg PO Q7D #1 tablet 10/07/19 Aspirin [Karina] 325 mg PO BIDWM #20 tablet 10/07/19 Calcium Carbonate [Tums (Calcium 500 mg PO BID #20 tablet 10/07/19 Carbonate 500mg)] Cholecalciferol (Vitamin D3) 1,000 unit PO DAILY #10 capsule 10/07/19 [Vitamin D3] Pantoprazole [Protonix] 40 mg PO QDAC #10 tablet 10/07/19 oxyCODONE [Roxicodone] 5 mg PO Q6H PRN #15 tablet 10/07/19 - PHYSICAL EXAM AT DISCHARGE General Appearance: positive: No acute distress, Alert. negative: Lethargic Eyes Bilateral: positive: Normal inspection, PERRL, No lid inflammation ENT: positive: ENT inspection nml, Pharynx nml, No signs of dehydration. negative: Purulent nasal drainage Neck: positive: Nml inspection, Thyroid nml, No JVD, Trachea midline. negative: Thyromegaly, Stiff neck, Tracheal deviation Respiratory: positive: Chest non-tender, No respiratory distress, Breath sounds nml. negative: Wheezes, Rales, Rhonchi Cardiovascular: positive: Regular rate & rhythm, No murmur, No gallop. negative: Irregularly irregular, Tachycardia, Bradycardia, Systolic murmur, Diastolic murmur Peripheral Pulses: positive: 2+ Abdomen: positive: Non-tender, No organomegaly, Nml bowel sounds, No distention. negative: Tenderness, Guarding, Rebound Back: positive: Nml inspection. negative: CVA tenderness (R), CVA tenderness (L) Skin: positive: Color nml, No rash, Warm, Dry. negative: Cyanosis, Diaphoresis, Pallor Extremities: positive: Non-tender, Nml appearance. negative: Calf tenderness, Anneliese's sign/cords Neurologic/Psychiatric: positive: Oriented x3, Sensation nml, Mood/affect nml. negative: Weakness, Sensory loss, Facial droop, Slurred/abnml speech, Depressed mood/affect - LABS Result Diagrams: 10/07/19 05:50 10/07/19 05:50 - SEPSIS Current Stage of Sepsis: Ruled out - QUALITY (Female Hip Fx Only) Was patient sent home on osteoporosis medication?: Yes - FOLLOW UP Follow Up: pt is prescribed another 10 days bid of Aspirin 325 mg, total 14 days bid aspirin, for DVT prophylaxis in hospital. Pt may be re-assessed by Rehab medical provider for DVT prophylaxis and continue Aspirin upto 6 weeks. pt may continue PT/OT in Rehab. pt may followup with [facility] provider when she is arrival, followup with PT/OT, followup with orthopedics office in two weeks. - TIME SPENT Time Spent in Discharge (Minutes): 30"
[2019-10-07] MEDS: oxyCODONE 5 MG TABLET PO PRN (10:08)
--- NOTE | 2019-10-07 10:17 | PROVIDER PROGRESS NOTE ---
Subjective - General Admit Date: 10/03/19 Procedure Date: 10/04/19 Post Op Days: 3 - Review of Systems Wound/Incisions: positive: Healing well, Dressing dry and intact Musculoskeletal: negative: Other (Her pain control is very good to her hip. She has mild pain to her hip. She is making good progress with her physical occupational therapy.) All Other Systems: positive: Reviewed and negative Objective - Patient Data Vital Signs: Vital Signs x48h Temp Pulse Resp BP Pulse Ox 10/07/19 08:19 36.6 C 85 18 138/78 H 100 Intake & Output: Intake and Output Totals x24h 10/05/19 10/06/19 10/07/19 23:59 23:59 23:59 Intake Total 5057.666 1185 240 Output Total 8268 619 2940 Balance 3732.666 685 -860 - Lab Results Lab Results: 10/07/19 05:50 10/07/19 05:50 Other Lab Results: Lab Results x24hrs 10/07/19 10/07/19 Range/Units 05:50 05:50 WBC 7.7 (4.8-10.8) x10^3/uL RBC 3.03 L (4.20-5.40) 10^6/uL Hgb 9.7 L (12.0-16.0) g/dL Hct 28.3 L (37.0-47.0) % MCV 93.4 (81.0-99.0) fL MCH 32.0 H (27.0-31.0) pg MCHC 34.3 (32.0-36.0) g/dL RDW 14.2 (12.0-15.0) % Plt Count 109 L (130-450) 10^3/uL MPV 9.8 (7.9-10.8) fL Neut # (Auto) 5.7 (1.5-6.6) 10^3/uL Lymph # (Auto) 0.8 L (1.5-3.5) 10^3/uL [place] # (Auto) 0.8 (0.0-1.0) 10^3/uL Eos # (Auto) 0.2 (0.0-0.7) 10^3/uL Baso # (Auto) 0.0 (0.0-0.1) 10^3/uL Absolute Nucleated RBC 0.00 x10^3/uL Nucleated RBC % 0.0 /100WBC Sodium 138 (135-145) mmol/L Potassium 3.7 (3.5-5.0) mmol/L Chloride 107 (101-111) mmol/L Carbon Dioxide 22 (21-32) mmol/L Anion Gap 9.0 (6-13) BUN 10 (6-20) mg/dL Creatinine 0.4 (0.4-1.0) mg/dL Estimated GFR (MDRD) 151 (>89) Glucose 99 (70-100) mg/dL Calcium 8.5 (8.5-10.3) mg/dL Phosphorus 3.2 (2.5-4.6) mg/dL Magnesium 2.1 (1.7-2.8) mg/dL - Current Medications Current Medications: Current Medications Generic Name Dose Route Start Last Admin Trade Name Freq PRN Reason Stop Dose Admin Acetaminophen 650 - 975 mg 10/04/19 13:42 10/07/19 04:02 Tylenol PO 325 mg Q4HR PRN Administration PAIN Aspirin 325 mg 10/04/19 17:00 10/07/19 08:22 Karina PO 325 mg BIDWM SAM Administration Atorvastatin Calcium 10 mg 10/04/19 21:00 10/06/19 21:20 Lipitor PO 10 mg QPM SAM Administration Calcium Carbonate/Glycine 500 mg 10/04/19 21:00 10/07/19 08:23 Tums PO 500 mg BID SAM Administration Carvedilol 12.5 mg 10/06/19 09:00 10/07/19 08:23 Coreg PO 12.5 mg BID SAM Administration Cholecalciferol 50 mcg 10/05/19 09:00 10/07/19 08:23 Vitamin D3 PO 50 mcg DAILY SAM Administration Docusate Sodium 100 mg 10/04/19 13:42 10/07/19 08:25 Colace 100mg Capsule PO 100 mg BID PRN Administration Constipation Lactobacillus Rhamnosus 1 cap 10/05/19 09:00 10/07/19 08:23 Culturelle PO 1 cap DAILY SAM Administration Levothyroxine Sodium 100 mcg 10/04/19 09:00 10/07/19 08:26 Synthroid PO 100 mcg DAILY SAM Administration Lisinopril 2.5 mg 10/06/19 09:00 10/07/19 08:22 Zestril PO 2.5 mg DAILY SAM Administration Morphine Sulfate 2 mg 10/03/19 20:14 10/05/19 11:17 Morphine (Carpuject) IVP 2 mg Q2HR PRN Administration Pain 8 to 10 Oxycodone HCl 5 mg 10/04/19 13:42 10/07/19 10:08 Roxicodone PO 5 mg Q6H PRN Administration PAIN Pantoprazole Sodium 40 mg 10/07/19 08:00 10/07/19 08:28 Protonix PO 40 mg QDAC SAM Administration Sodium Chloride 10 ml 10/04/19 17:00 10/07/19 08:28 Normal Saline Flush 0.9% IVP 10 ml 0100,0900,1700 SAM Administration Sodium Phosphate 250 mg 10/06/19 08:00 10/07/19 08:23 K-Phos Neutral PO 250 mg TIDWM SAM Administration - Physical Exam Wound/Incisions: positive: Healing well, Dressing dry and intact General Appearance: positive: No acute distress Impression/Plan - Problem List Problem List: She is being transferred to a shelter facility today. She is making progress with her physical and Occupational Therapy and will need further rehabilitation to make her safe for home return. She should continue on aspirin 325 or 81 mg twice daily for approximately 6 weeks for deep venous thrombosis prophylaxis. She should use a walker with weightbearing as tolerated. She may need suture removal to 2 of her incisions in approximately 10 days. I would be happy to recheck her at about 6 weeks if she still in the area for follow-up of her hip.
== END 2019-10-07 10:30 | DRG 481 ==
LOC: EDUNIT# → ED 18:57 → MS2 20:14
PROVIDERS: ADMIT Internal Medicine; ATTEND Nurse Practitioner Gerontology
PROC: 0QS606Z Reposition Right Upper Femur with Intramedullary Internal Fixation Device, Open Approach (ICD-10-PCS; principal; 2019-10-04 10:15)
PROC: 30233N1 Transfusion of Nonautologous Red Blood Cells into Peripheral Vein, Percutaneous Approach (ICD-10-PCS; 2019-10-05)
DX: S72.001A Fracture of unspecified part of neck of right femur, initial encounter for closed fracture (principal); S72.041A Displaced fracture of base of neck of right femur, initial encounter for closed fracture; I42.9 Cardiomyopathy, unspecified; D62 Acute posthemorrhagic anemia; M81.0 Age-related osteoporosis without current pathological fracture; E78.00 Pure hypercholesterolemia, unspecified; M79.621 Pain in right upper arm; W18.30XA Fall on same level, unspecified, initial encounter; Y92.000 Kitchen of unspecified non-institutional (private) residence as the place of occurrence of the external cause; E86.0 Dehydration; E03.9 Hypothyroidism, unspecified; I10 Essential (primary) hypertension; I95.9 Hypotension, unspecified; M19.90 Unspecified osteoarthritis, unspecified site; Z96.642 Presence of left artificial hip joint; Z66 Do not resuscitate; Z95.810 Presence of automatic (implantable) cardiac defibrillator; Z86.73 Personal history of transient ischemic attack (TIA), and cerebral infarction without residual deficits; Z79.899 Other long term (current) drug therapy; Z79.82 Long term (current) use of aspirin; Z82.62 Family history of osteoporosis
CPT/HCPCS: 36415; 72192; 73060; 73502; 80048; 80053; 83690; 83735; 84100; 84443; 85014; 85018; 85025; 85610; 86850; 86900; 86901; 86920; 93005; 93306; 96374; 97161; 97166; 97530; 97535; 99285; A9270; J2795; J7040; J7120; P9016; U0004; 81599

== ENCOUNTER 2020-05-01 08:00 | Outpatient (CLI) | payer MEDICARE, OTHER ==
[2020-05-01 18:07] LABS: BASOPHILS # (AUTO) 0.1 10^3/uL (0.0-0.1); BASOPHILS % (AUTO) 0.7 %; EOSINOPHILS # (AUTO) 0.1 10^3/uL (0.0-0.7); EOSINOPHILS % (AUTO) 1.5 %; HGB - HEMOGLOBIN 12.6 g/dL (12.0-16.0); LYMPHOCYTES # (AUTO) 1.2 10^3/uL (1.5-3.5); LYMPHOCYTES % (AUTO) 15.6 %; MEAN CORPUSCULAR HEMOGLOBIN 31.3 pg (27.0-31.0); MEAN CORPUSCULAR HGB CONC 31.3 g/dL (32.0-36.0); MONOCYTES # (AUTO) 0.7 10^3/uL (0.0-1.0); MONOCYTES % (AUTO) 8.6 %; NEUTROPHILS # (AUTO) 5.5 10^3/uL (1.5-6.6); NEUTROPHILS % (AUTO) 73.3 %; PLT - PLATELET COUNT 213 10^3/uL (130-450); RED BLOOD COUNT 4.03 10^6/uL (4.20-5.40); RED CELL DISTRIBUTION WIDTH 13.4 % (12.0-15.0); WHITE BLOOD COUNT 7.5 x10^3/uL (4.8-10.8)
[2020-05-01 18:09] LABS: ALBUMIN/GLOBULIN RATIO 1.3 (1.0-2.2); BILIRUBIN,TOTAL 0.5 mg/dL (0.2-1.0); CALCIUM 9.7 mg/dL (8.5-10.3); CREATININE 0.4 mg/dL (0.4-1.0); TOTAL PROTEIN 7.1 g/dL (6.7-8.2)
== END 2020-05-01 23:59 | disposition home or self-care (01) ==
LOC: LAB.N 08:00
PROVIDERS: ATTEND Family Medicine
DX: G62.9 Polyneuropathy, unspecified (principal)
CPT/HCPCS: 36415; 80053; 83921; 84443; 85025

== ENCOUNTER 2020-10-28 08:57 | Outpatient (CLI) | payer MEDICARE, OTHER | END 2020-10-28 08:58 | disposition critical access hospital (66) | LOC: EMS 08:57 | DX: R42 Dizziness and giddiness (principal); M25.531 Pain in right wrist; M25.552 Pain in left hip; M25.551 Pain in right hip; M25.562 Pain in left knee; M25.561 Pain in right knee; Z91.81 History of falling | CPT/HCPCS: A0425; A0429 ==

== ENCOUNTER 2020-10-28 09:17 | Emergency (ER) | payer MEDICARE, OTHER ==
[2020-10-28 10:00] LABS: BASOPHILS % (AUTO) 0.4 %; EOSINOPHILS % (AUTO) 0.4 %; HCT - HEMATOCRIT 34.6 % (37.0-47.0); HGB - HEMOGLOBIN 11.5 g/dL (12.0-16.0); LYMPHOCYTES # (AUTO) 0.7 10^3/uL (1.5-3.5); LYMPHOCYTES % (AUTO) 8.4 %; MEAN CORPUSCULAR HEMOGLOBIN 31.6 pg (27.0-31.0); MEAN CORPUSCULAR HGB CONC 33.2 g/dL (32.0-36.0); MEAN CORPUSCULAR VOLUME 95.1 fL (81.0-99.0); MEAN PLATELET VOLUME 9.6 fL (7.9-10.8); MONOCYTES # (AUTO) 0.8 10^3/uL (0.0-1.0); MONOCYTES % (AUTO) 10.6 %; NEUTROPHILS # (AUTO) 6.3 10^3/uL (1.5-6.6); NEUTROPHILS % (AUTO) 79.9 %; PLT - PLATELET COUNT 190 10^3/uL (130-450); RED BLOOD COUNT 3.64 10^6/uL (4.20-5.40); RED CELL DISTRIBUTION WIDTH 13.1 % (12.0-15.0); WHITE BLOOD COUNT 7.9 x10^3/uL (4.8-10.8)
[2020-10-28 10:07] LABS: ALBUMIN/GLOBULIN RATIO 1.5 (1.0-2.2); BILIRUBIN,TOTAL 0.7 mg/dL (0.2-1.0); CALCIUM 9.6 mg/dL (8.5-10.3); CREATININE 0.4 mg/dL (0.4-1.0); POTASSIUM 3.9 mmol/L (3.5-5.0); TOTAL PROTEIN 6.6 g/dL (6.7-8.2)
--- NOTE | 2020-10-28 10:12 | CT Report ---
PROCEDURE: HEAD WO INDICATIONS: weakness/fall TECHNIQUE: Noncontrast 4.5 mm thick angled axial sections acquired from the foramen magnum to the vertex. For r adiation dose reduction, the following was used: automated exposure control, adjustment of mA and/or kV according to patient size. COMPARISON: 03/25/2015.. FINDINGS: Image quality: Excellent. CSF spaces: Basal cisterns are patent. No extra-axial fluid collections. Ventricles are normal in size and shape. Brain: No midline shift. No intracranial masses or hemorrhage. [place]ro-white matter interface is norm al. Skull and face: Calvarium and visualized facial bones are intact, without suspicious lesions. Sinuses: Visualized sinuses and mastoids are clear. IMPRESSION: No acute intracranial disease process. Reviewed by: Kayleigh García MD, PhD on 10/28/2020 10:11 AM PDT Approved by: Kayleigh García MD, PhD on 10/28/2020 10:11 AM PDT Station ID: [id number]
--- NOTE | 2020-10-28 10:34 | XRAY Report ---
PROCEDURE: Hip w/Pelvis 2-3V LT INDICATIONS: fall/pain TECHNIQUE: AP pelvis with lateral view(s) of the left hip(s). COMPARISON: CT and x-ray pelvis 10/03/2019 FINDINGS: Bones: Left hip arthroplasty and right femoral fixation are present. Hardware is intact without evid ence of hardware fracture or periprosthetic lucency to suggest loosening. There is a nondisplaced anuradha ency at the medial margin of the left left trochanter. It is seen best on AP view. This area is not a s clearly identified on prior exam. Heterotopic bone is noted adjacent to the left iliac bone, unchan ged. Soft tissues: The visualized bowel gas pattern is normal. No suspicious soft tissue calcifications. IMPRESSION: 1. Ill-defined lucency along the medial aspect of the trochanter on the left. Acute/subacute fracture cannot be excluded. It is not well seen on all views. If this corresponds to area of pain, CT is rec ommended. Reviewed by: Shawanda Montero MD on 10/28/2020 10:32 AM PDT Approved by: Shawanda Montero MD on 10/28/2020 10:32 AM PDT Station ID: [id number]
[2020-10-28 12:29] LABS: BILIRUBIN,URINE NEGATIVE (NEGATIVE); GLUCOSE, URINE (UA) NEGATIVE (NEGATIVE); KETONES,URINE (UA) 15 mg/dL (NEGATIVE); LEUKOCYTE ESTERASE, URINE SMALL (NEGATIVE); NITRITE,URINE NEGATIVE (NEGATIVE); OCCULT BLOOD,URINE NEGATIVE (NEGATIVE); PROTEIN,URINE NEGATIVE (NEGATIVE); UROBILINOGEN,URINE 0.2 (NORMAL) E.U./dL (NORMAL)
[2020-10-28 12:37] LABS: CLARITY,URINE HAZY (CLEAR)
[2020-10-28 12:54] LABS: BACTERIA,URINE Moderate /HPF (None Seen); RBC,URINE 0-5 /HPF (0-5); SQUAMOUS EPITHELIAL CELL,UR MANY Squamous (<= Few)
--- NOTE | 2020-10-28 13:23 | ED Physician Documentation ---
History of Present Illness - Stated complaint Stated Complaint: GLF/L HIP PX - Chief complaint Chief Complaint: Trauma Ext - History obtained from History obtained from: Patient, EMS - Additonal information Additional information: Patient comes emergency department chief complaint of fall from ground-level. Patient states that she has just felt more off balance over the past few months, but in the last week she has had a few falls. She states she uses a walker but sometimes lifts too much to one side or the other and pulls the walker down with her. Patient states that she fell out on her deck yesterday and bruised her left buttock. She has been having pain in the hip and buttock ever since and so she has decided to come here. She denies any nausea or vomiting. No diarrhea. No fevers or chills. No dysuria. Patient states that she lives by herself but has a neighbor on either side who is very helpful, plus children who are also very helpful. No other complaints at this time. Patient did not injure herself in any other way. No focal weakness. Review of Systems Ten Systems: 10 systems reviewed and negative Constitutional: reports: Reviewed and negative Eyes: reports: Reviewed and negative Ears: reports: Reviewed and negative Nose: reports: Reviewed and negative Throat: reports: Reviewed and negative Cardiac: reports: Reviewed and negative Respiratory: reports: Reviewed and negative GI: reports: Reviewed and negative : reports: Reviewed and negative Skin: reports: Other (Contusion left buttock) Musculoskeletal: reports: Joint pain Neurologic: reports: Reviewed and negative Psychiatric: reports: Reviewed and negative Endocrine: reports: Reviewed and negative Immunocompromised: reports: Reviewed and negative PD PAST MEDICAL HISTORY - Past Medical History Cardiovascular: Congestive heart failure, Hypertension, High cholesterol Respiratory: None Neuro: CVA Endocrine/Autoimmune: HyPOthyroidism GI: None : None HEENT: None Psych: None Musculoskeletal: Osteoarthritis Derm: None - Past Surgical History Past Surgical History: Yes Ortho: Hip replacement /ENTRY LEVEL INSTALLATION TECHNICIAN: Hysterectomy Cardiovascular: AICD HEENT: Cataracts, Tonsil/Adenoidectomy - Present Medications Home Medications: Ambulatory Orders Medication Instructions Recorded Confirmed Aspirin [Aspir 81] 81 mg PO QPM 03/25/15 10/04/19 Levothyroxine [Synthroid] 100 mcg PO QDAC 03/25/15 10/04/19 Calcium Carbonate [Calcium] 600 mg PO BID 03/26/15 10/04/19 Fluticasone [Flonase] 1 sprays LINDY BID 09/01/15 10/04/19 Lisinopril [Zestril] 2.5 mg PO DAILY 10/04/19 10/04/19 Rosuvastatin Calcium [Crestor] 5 mg PO MOWEFR@0900 10/04/19 10/04/19 carvediloL [Carvedilol] 12.5 mg PO BID 10/04/19 10/04/19 Alendronate [Fosamax] 70 mg PO Q7D #1 tablet 10/07/19 Aspirin [Karina] 325 mg PO BIDWM #20 tablet 10/07/19 Calcium Carbonate [Tums (Calcium 500 mg PO BID #20 tablet 10/07/19 Carbonate 500mg)] Cholecalciferol (Vitamin D3) 1,000 unit PO DAILY #10 capsule 10/07/19 [Vitamin D3] Pantoprazole [Protonix] 40 mg PO QDAC #10 tablet 10/07/19 oxyCODONE [Roxicodone] 5 mg PO Q6H PRN #15 tablet 10/07/19 - Allergies Allergies/Adverse Reactions: Allergies Allergy/AdvReac Type Severity Reaction Status Date / Time levofloxacin [From Levaquin] Allergy Unknown Verified 10/28/20 09:26 meperidine HCl * Allergy Unknown Verified 10/28/20 09:26 [From Demerol] Penicillins Allergy Unknown Verified 10/28/20 09:26 perfume Allergy Unknown Verified 10/28/20 09:26 Sulfa (Sulfonamide Allergy Unknown Verified 10/28/20 09:26 Antibiotics) - Social History Does the pt smoke?: No Smoking Status: Never smoker Does the pt drink ETOH?: Yes Does the pt have substance abuse?: No - Immunizations Immunizations are current?: Yes - POLST Patient has POLST: No PD ED PE NORMAL - Vitals Vital signs reviewed: Yes - General General: Alert and oriented X 3, No acute distress, Well developed/nourished - HEENT HEENT: Atraumatic, PERRL, EOMI, Moist mucous membranes - Neck Neck: Supple, no meningeal sign, No bony TTP - Cardiac Cardiac: RRR, No murmur - Respiratory Respiratory: No respiratory distress, Clear bilaterally - Abdomen Abdomen: Soft, Non tender, Non distended - Back Back: No CVA TTP, No spinal TTP - Derm Derm: Normal color, Warm and dry, No rash, Other (Contusion left buttock. No fluctuance.) - Extremities Extremities: No deformity, No edema, No calf tenderness / cord, Other (No lateral left hip tenderness. No palpable deformity. Tenderness over left buttock sciatic area, which is same area that is contused.) - Neuro Neuro: Alert and oriented X 3, ep tech 2-12 intact, No motor deficit, No sensory deficit, Normal speech - Psych Psych: Normal mood, Normal affect Results - Vitals Vitals: Vital Signs - 24 hr 10/28/20 10/28/20 10/28/20 09:26 11:42 13:00 Temperature 37.1 C 36.4 C L 36.5 C Heart Rate 96 79 80 Respiratory 20 16 16 Rate Blood Pressure 127/71 114/57 L 116/60 O2 Saturation 94 100 100 10/28/20 10/28/20 15:15 17:32 Temperature 37.1 C 36.9 C Heart Rate 86 76 Respiratory 20 20 Rate Blood Pressure 111/85 H 117/65 O2 Saturation 99 96 Oxygen O2 Source [With Activity] Room air O2 Source [Without Activity] Room air O2 Source Room air - Labs Labs: Laboratory Tests 10/28/20 10/28/20 10/28/20 09:48 09:48 12:15 WBC 7.9 RBC 3.64 L Hgb 11.5 L Hct 34.6 L MCV 95.1 MCH 31.6 H MCHC 33.2 RDW 13.1 Plt Count 190 MPV 9.6 Neut # (Auto) 6.3 Lymph # (Auto) 0.7 L [place] # (Auto) 0.8 Eos # (Auto) 0.0 Baso # (Auto) 0.0 Absolute Nucleated RBC 0.00 Nucleated RBC % 0.0 Sodium 136 Potassium 3.9 Chloride 103 Carbon Dioxide 23 Anion Gap 10.0 BUN 26 H Creatinine 0.4 Estimated GFR (MDRD) 151 Glucose 102 H Calcium 9.6 Total Bilirubin 0.7 AST 24 ALT 20 Alkaline Phosphatase 59 Total Protein 6.6 L Albumin 4.0 Globulin 2.6 Albumin/Globulin Ratio 1.5 Lipase 30 Urine Color YELLOW Urine Clarity HAZY Urine pH 6.0 Ur Specific [place] 1.025 Urine Protein NEGATIVE Urine Glucose (UA) NEGATIVE Urine Ketones 15 H Urine Occult Blood NEGATIVE Urine Nitrite NEGATIVE Urine Bilirubin NEGATIVE Urine Urobilinogen 0.2 (NORMAL) Ur Leukocyte Esterase SMALL H Urine RBC 0-5 Urine WBC 6-10 H Ur Squamous Epith Cells MANY Squamous H Urine Bacteria Moderate H Ur Microscopic Review INDICATED Urine Culture Comments NOT INDICATED - Rads (name of study) Head CT Radiology: Final report received, EMP read indepedently, See rad report (nad) L hip/pelvis xr Radiology: Final report received, EMP read indepedently, See rad report (trochanteric lucency, cannot r/o fx) Pelvis CT Radiology: Final report received, EMP read indepedently, See rad report (No fracture noted.) PD MEDICAL DECISION MAKING - ED course Complexity details: considered differential, d/w patient ED course: The patient was worked up with labs, as well as head CT which was unremarkable, and left hip and pelvic x-rays which could not rule out a fracture of the trochanter adjacent to the left hip prosthesis. As such, a CT without contrast was ordered of the pelvis and hip. This did not show any acute fracture. The patient had been hydrated with 1 L NS, and was feeling better and felt she was stable for discharge home. We have discussed fall precautions especially when walking with her walker and the usual indications for return. Departure - Departure Disposition: 01 Home, Self Care Clinical Impression: Dehydration Fall Qualifiers: Encounter type: initial encounter Qualified Code(s): W19.XXXA - Unspecified fall, initial encounter Contusion, buttock Qualifiers: Encounter type: initial encounter Qualified Code(s): S30.0XXA - Contusion of lower back and pelvis, initial encounter Condition: Stable Instructions: Falls Prevent Safe Cane Walker, Falls Prevent Exercise, ED De hydration Comments: Your labs, urinalysis, and CT of the pelvis and hip all look good. There is no break in the bones surrounding your hip prostheses. Most likely, you strained your hip and bruised the overlying tissue on your buttock and this is the cause of the pain. Please walk very carefully with your walker and be sure you get up and about plenty to stay strong and conditioned.
[2020-10-28] MEDS: SODIUM CHLORIDE 0.9% 1,000 ML IV STA (13:24)
--- NOTE | 2020-10-28 13:24 | CT Report ---
PROCEDURE: PELVIS WO INDICATIONS: L hip pain TECHNIQUE: Noncontrast 3 mm axial sections acquired through the bony pelvis, with coronal and sagittal reformatt ing. For radiation dose reduction, the following was used: automated exposure control, adjustment of mA and/or kV according to patient size. COMPARISON: X-ray hip 10/28/2020, 10/03/2019, CT pelvis 10/03/2019 FINDINGS: Image quality: There is limited visualization of the pelvis secondary to artifact from right hip art hroplasty, as well as left femoral fixation hardware. Bones: Left hip arthroplasty and right femoral fixation are present. Hardware is intact without evid ence of hardware fracture or periprosthetic lucency to suggest loosening. Heterotopic bone is noted a djacent to the left hip. Lucencies are noted in the proximal femur. These appear chronic and are bett er delineated on prior CT exam. Old right pubic symphysis inferior ramus fracture is present. Degener ative changes are present within the pelvic bones. Soft tissues: Soft tissues are within normal limits. IMPRESSION: 1. No definitively visualized fracture. Areas of artifact secondary to arthroplasty hardware well as well as superimposed arthritic change is noted. Areas of lucency noted on x-ray appear chronic. If co ncern for stress or occult injury persists, MRI is recommended. Reviewed by: Shawanda Montero MD on 10/28/2020 1:22 PM PDT Approved by: Shawanda Montero MD on 10/28/2020 1:22 PM PDT Station ID: [id number]
[2020-10-28 17:33] VITALS: BP 117/65
== END 2020-10-28 18:22 | disposition home or self-care (01) ==
LOC: EDUNIT# → ED 09:17
DX: S30.0XXA Contusion of lower back and pelvis, initial encounter (principal); M25.552 Pain in left hip; W18.30XA Fall on same level, unspecified, initial encounter; Y92.008 Other place in unspecified non-institutional (private) residence as the place of occurrence of the external cause; E86.0 Dehydration; R53.1 Weakness; Z91.81 History of falling; Z96.642 Presence of left artificial hip joint; I10 Essential (primary) hypertension; Z79.82 Long term (current) use of aspirin
CPT/HCPCS: 36415; 80053; 81001; 81003; 83690; 85025; 87086; 96360; 99284

== ENCOUNTER 2021-01-06 16:53 | Emergency (ER) | payer MEDICARE, OTHER ==
--- NOTE | 2021-01-06 17:57 | CT Report ---
PROCEDURE: HEAD WO INDICATIONS: fall, head injury, neck injury TECHNIQUE: Noncontrast 4.5 mm thick angled axial sections acquired from the foramen magnum to the vertex. For r adiation dose reduction, the following was used: automated exposure control, adjustment of mA and/or kV according to patient size. COMPARISON: CT head 10/28/2020 FINDINGS: Image quality: Excellent. The ventricular system and cortical sulci demonstrate atrophy, consistent for patient's stated age. There are areas of hypodensity in the periventricular and subcortical white matter. There is hyperde nsity within the basal cisterns/quadrigeminal plate cisterns. No mass lesion or midline shift. Brain stem is unremarkable. Globes are symmetrical. Sinuses are aerated. Osseous structures are intact. Left frontal scalp hemato ma is present. IMPRESSION: 1. Interval hemorrhage within the basal cistern/quadrigeminal plate cisterns as above. No intraventri cular hemorrhage is identified. 2. Left frontal scalp hematoma. 3. Atrophy and chronic microvascular ischemic changes are present. The above findings were discussed with Dr. Carlos Bauer on 01/06/2021 at 5:54 PM. Reviewed by: Shawanda Montero MD on 01/06/2021 5:55 PM PDT Approved by: Shawanda Montero MD on 01/06/2021 5:55 PM PDT Station ID: [id number]
--- NOTE | 2021-01-06 18:01 | CT Report ---
PROCEDURE: CERVICAL SPINE WO INDICATIONS: fall, head injury, neck injury TECHNIQUE: Noncontrast 3 mm thick sections acquired from the skull base to the T4 level. Sagittal and coronal r eformats were then constructed. For radiation dose reduction, the following was used: automated exp osure control, adjustment of mA and/or kV according to patient size. COMPARISON: Correlation is made with the accompanying head CT, 01/06/2021. Correlation is also made w ith the prior CT neck angiogram 03/25/2015. Correlation is also made with the accompanying chest radio graph, 01/06/2021. FINDINGS: Image quality: Excellent. Bones: No acute appearing fractures or dislocations. Chronic appearing anterior wedge deformity are seen in T1 and T2, with progression of T1 compared to 2015. Visualized superior ribs are intact. There is prominently accentuated thoracic kyphosis. Focal degenerative change can also be seen involving the C1-C2 interface anteriorly. Milder degenerat noa changes are seen elsewhere. Soft tissues: Prevertebral soft tissues are normal in thickness. No paravertebral hematomas. No ap ical pneumothoraces. Presumed apical scarring can be seen. The proximal aortic arch is mildly aneury smal, measuring 3.5 cm. Pacer leads are partially seen. IMPRESSION: No acute fractures are seen. Chronic appearing T1 and T2 anterior wedge deformities are seen. Prominently accentuated thoracic kyphosis. Degenerative changes are seen. 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 Reviewed by: Duy La MD on 01/06/2021 5:00 PM AKDT Approved by: Duy La MD on 01/06/2021 5:00 PM AKDT Station ID: [id number]
[2021-01-06 18:05] LABS: BASOPHILS % (AUTO) 0.4 %; EOSINOPHILS # (AUTO) 0.1 10^3/uL (0.0-0.7); EOSINOPHILS % (AUTO) 1.3 %; HCT - HEMATOCRIT 40.8 % (37.0-47.0); HGB - HEMOGLOBIN 13.5 g/dL (12.0-16.0); LYMPHOCYTES % (AUTO) 11.5 %; MEAN CORPUSCULAR HGB CONC 33.1 g/dL (32.0-36.0); MEAN CORPUSCULAR VOLUME 96.7 fL (81.0-99.0); MONOCYTES # (AUTO) 0.8 10^3/uL (0.0-1.0); MONOCYTES % (AUTO) 9.1 %; NEUTROPHILS # (AUTO) 6.9 10^3/uL (1.5-6.6); NEUTROPHILS % (AUTO) 77.4 %; PLT - PLATELET COUNT 217 10^3/uL (130-450); RED BLOOD COUNT 4.22 10^6/uL (4.20-5.40); RED CELL DISTRIBUTION WIDTH 12.7 % (12.0-15.0)
--- NOTE | 2021-01-06 18:07 | XRAY Report ---
PROCEDURE: Ribs w/PA Chest LT INDICATIONS: fall, L rib pain TECHNIQUE: 3 views of the left ribs were acquired, along with a single view chest. COMPARISON: Chest x-ray 08/30/2015 FINDINGS: Surgical changes and devices: Pacemaker. Bones and chest wall: Pacemaker obscures portions of the left upper and lateral ribs. No fractures o r dislocations. No suspicious bony lesions. Overlying soft tissues appear unremarkable. Lungs and pleura: There is blunting of the left costophrenic angle with mild increased opacity. Mediastinum: Mediastinal contours appear normal. Heart size is enlarged. IMPRESSION: No visualized acute fracture or dislocation. However, occult injury cannot be excluded. Recommend jae rt interval imaging follow-up in 7-10 days as clinically indicated for additional evaluation. Minimal left effusion. Underlying areas of airspace disease such as pneumonia and/or atelectasis subhash ot be excluded. Reviewed by: Shawanda Montero MD on 01/06/2021 6:06 PM PDT Approved by: Shawanda Montero MD on 01/06/2021 6:06 PM PDT Station ID: [id number]
[2021-01-06 18:13] LABS: INR 1.1 (0.8-1.2); PT - PROTHROMBIN TIME 12.7 secs (9.9-12.6)
[2021-01-06 18:20] LABS: ALBUMIN 3.8 g/dL (3.2-5.5); ALBUMIN/GLOBULIN RATIO 1.3 (1.0-2.2); BILIRUBIN,TOTAL 0.5 mg/dL (0.2-1.0); CALCIUM 9.7 mg/dL (8.5-10.3); CREATININE 0.6 mg/dL (0.4-1.0); PARTIAL THROMBOPLASTIN TIME 27.3 secs (24.9-33.3); POTASSIUM 3.9 mmol/L (3.5-5.0); TOTAL PROTEIN 6.7 g/dL (6.7-8.2)
--- NOTE | 2021-01-06 19:05 | ED Physician Documentation ---
History of Present Illness - Stated complaint Stated Complaint: GLF - Chief complaint Chief Complaint: Trauma Hd/Nk - History obtained from History obtained from: Patient, Family - History of Present Illness Pain level max: 2 Pain level now: 1 - Additonal information Additional information: Patient is an 85-year-old female who states that 3 days ago she was at home when she believes that she fell, but may have passed out. She states she was in the kitchen and next thing she knew she was on the floor. She has a pacemaker/ICD in place. She did strike her head. She then fell again yesterday. This 1 she did not pass out and does remember tripping and falling. Complains of mild left rib pain. Also has bruising on the face. She is not on blood thinners. She does not want any surgical interventions. She does not want any CPR. Review of Systems Ten Systems: 10 systems reviewed and negative Constitutional: denies: Fever, Chills Ears: denies: Ear pain Nose: denies: Rhinorrhea / runny nose, Congestion Respiratory: denies: Cough GI: denies: Nausea, Vomiting, Diarrhea Skin: denies: Rash Musculoskeletal: denies: Neck pain, Back pain Neurologic: denies: Headache PD PAST MEDICAL HISTORY - Past Medical History Cardiovascular: Congestive heart failure, Hypertension, High cholesterol Respiratory: None Neuro: CVA Endocrine/Autoimmune: HyPOthyroidism GI: None : None HEENT: None Psych: None Musculoskeletal: Osteoarthritis Derm: None - Past Surgical History Past Surgical History: Yes Ortho: Hip replacement /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 Cardiovascular: AICD HEENT: Cataracts, Tonsil/Adenoidectomy - Present Medications Home Medications: Ambulatory Orders Medication Instructions Recorded Confirmed Aspirin [Aspir 81] 81 mg PO QPM 03/25/15 10/04/19 Levothyroxine [Synthroid] 100 mcg PO QDAC 03/25/15 10/04/19 Calcium Carbonate [Calcium] 600 mg PO BID 03/26/15 10/04/19 Fluticasone [Flonase] 1 sprays LINDY BID 09/01/15 10/04/19 Lisinopril [Zestril] 2.5 mg PO DAILY 10/04/19 10/04/19 Rosuvastatin Calcium [Crestor] 5 mg PO MOWEFR@0900 06/17/20 06/17/20 carvediloL [Carvedilol] 12.5 mg PO BID 10/04/19 10/04/19 Alendronate [Fosamax] 70 mg PO Q7D #1 tablet 10/07/19 Aspirin [Karina] 325 mg PO BIDWM #20 tablet 10/07/19 Calcium Carbonate [Tums (Calcium 500 mg PO BID #20 tablet 10/07/19 Carbonate 500mg)] Cholecalciferol (Vitamin D3) 1,000 unit PO DAILY #10 capsule 10/07/19 [Vitamin D3] Pantoprazole [Protonix] 40 mg PO QDAC #10 tablet 10/07/19 oxyCODONE [Roxicodone] 5 mg PO Q6H PRN #15 tablet 10/07/19 - Allergies Allergies/Adverse Reactions: Allergies Allergy/AdvReac Type Severity Reaction Status Date / Time levofloxacin [From Levaquin] Allergy Unknown Verified 10/28/20 09:26 meperidine HCl * Allergy Unknown Verified 10/28/20 09:26 [From Demerol] Penicillins Allergy Unknown Verified 10/28/20 09:26 perfume Allergy Unknown Verified 10/28/20 09:26 Sulfa (Sulfonamide Allergy Unknown Verified 10/28/20 09:26 Antibiotics) - Social History Does the pt smoke?: No Smoking Status: Never smoker Does the pt drink ETOH?: Yes Does the pt have substance abuse?: No - Immunizations Immunizations are current?: Yes - POLST Patient has POLST: No PD ED PE NORMAL - Vitals Vital signs reviewed: Yes - General General: Alert and oriented X 3, No acute distress - HEENT HEENT: PERRL, EOMI, Moist mucous membranes, Other (Bruising to the left forehead and left side of the face. 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, No motor deficit, No sensory deficit, Normal speech - Psych Psych: Normal mood, Normal affect Results - Vitals Vitals: Oxygen O2 Source [] Room air O2 Source [] Room air O2 Source Nasal cannula - EKG (time done) 1831 Rate: Rate (enter#) (71) Rhythm: Other (atrial sensed, ventricular paced) - Labs Labs: Laboratory Tests 01/06/21 01/06/21 01/06/21 17:59 17:59 17:59 WBC 9.0 RBC 4.22 Hgb 13.5 Hct 40.8 MCV 96.7 MCH 32.0 H MCHC 33.1 RDW 12.7 Plt Count 217 MPV 9.0 Neut # (Auto) 6.9 H Lymph # (Auto) 1.0 L Davie # (Auto) 0.8 Eos # (Auto) 0.1 Baso # (Auto) 0.0 Absolute Nucleated RBC 0.00 Nucleated RBC % 0.0 PT 12.7 H INR 1.1 APTT 27.3 Sodium 134 L Potassium 3.9 Chloride 100 L Carbon Dioxide 25 Anion Gap 9.0 BUN 16 Creatinine 0.6 Estimated GFR (MDRD) 95 Glucose 138 H Calcium 9.7 Total Bilirubin 0.5 AST 21 ALT 17 Alkaline Phosphatase 71 Troponin I High Sens Total Protein 6.7 Albumin 3.8 Globulin 2.9 Albumin/Globulin Ratio 1.3 Nasal Adenovirus (PCR) Nasal B. parapertussis DNA (PCR) Nasal Coronavir 229E PCR Nasal Coronavir HKU1 PCR Nasal Coronavir NL63 PCR Nasal Coronavir OC43 PCR Nasal Enterovir/Rhinovir PCR Nasal Influenza B PCR Nasal Influenza A PCR Nasal Parainfluen 1 PCR Nasal Parainfluen 2 PCR Nasal Parainfluen 3 PCR Nasal Parainfluen 4 PCR Nasal RSV (PCR) Nasal B.pertussis DNA PCR Nasal C.pneumoniae (PCR) Lindy Human Metapneumo PCR Nasal M.pneumoniae (PCR) Nasal SARS-CoV-2 (PCR) 01/06/21 01/06/21 17:59 19:41 WBC RBC Hgb Hct MCV MCH MCHC RDW Plt Count MPV Neut # (Auto) Lymph # (Auto) Davie # (Auto) Eos # (Auto) Baso # (Auto) Absolute Nucleated RBC Nucleated RBC % PT INR APTT Sodium Potassium Chloride Carbon Dioxide Anion Gap BUN Creatinine Estimated GFR (MDRD) Glucose Calcium Total Bilirubin AST ALT Alkaline Phosphatase Troponin I High Sens 4.5 Total Protein Albumin Globulin Albumin/Globulin Ratio Nasal Adenovirus (PCR) NOT DETECTED Nasal B. parapertussis DNA (PCR) NOT DETECTED Nasal Coronavir 229E PCR NOT DETECTED Nasal Coronavir HKU1 PCR NOT DETECTED Nasal Coronavir NL63 PCR NOT DETECTED Nasal Coronavir OC43 PCR NOT DETECTED Nasal Enterovir/Rhinovir PCR NOT DETECTED Nasal Influenza B PCR NOT DETECTED Nasal Influenza A PCR NOT DETECTED Nasal Parainfluen 1 PCR NOT DETECTED Nasal Parainfluen 2 PCR NOT DETECTED Nasal Parainfluen 3 PCR NOT DETECTED Nasal Parainfluen 4 PCR NOT DETECTED Nasal RSV (PCR) NOT DETECTED Nasal B.pertussis DNA PCR NOT DETECTED Nasal C.pneumoniae (PCR) NOT DETECTED Lindy Human Metapneumo PCR NOT DETECTED Nasal M.pneumoniae (PCR) NOT DETECTED Nasal SARS-CoV-2 (PCR) NOT DETECTED - Rads (name of study) head CT Radiology: Final report received, EMP read contemporaneously, See rad report cervical spine CT Radiology: Final report received, EMP read contemporaneously, See rad report (no acute abnormality.) chest xray w/ ribs Radiology: Final report received, EMP read contemporaneously, See rad report (no acute abnormality.) PD MEDICAL DECISION MAKING - ED course Complexity details: reviewed results, re-evaluated patient, considered differential, d/w patient, d/w family, 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 Possible syncopal episode as well. Contacted the pacemaker company who states that there were no reported arrhythmias. No shocks fired from the ICD. Patient does have a small subarachnoid hemorrhage. Patient does not want neurosurgery or surgical intervention. Discussed the case with [facility], neurosurgery who feels that this is unlikely to enlarge if she is not on blood thinners and has been there for 2 days. They do recommend stopping aspirin and this will be done. Patient does not want to be admitted to the hospital. Family is comfortable taking her home. Patient is DNR, about 18 months ago. No other acute findings on laboratory testing. Patient and family counseled regarding signs and symptoms for which I believe and urgent re-evaluation would be necessary. Patient with good understanding of and agreement to plan and is comfortable going home at this time This document was made in part using voice recognition software. While efforts are made to proofread this document, sound alike and grammatical errors may occur. 1. Interval hemorrhage within the basal cistern/quadrigeminal plate cisterns as above. No intraventricular hemorrhage is identified. 2. Left frontal scalp hematoma. 3. Atrophy and chronic microvascular ischemic changes are present. Departure - Departure Disposition: 01 Home, Self Care Clinical Impression: Subarachnoid hemorrhage Closed head injury Qualifiers: Encounter type: initial encounter Qualified Code(s): S09.90XA - Unspecified injury of head, initial encounter Contusion of rib Qualifiers: Encounter type: initial encounter Laterality: left Qualified Code(s): S20.212A - Contusion of left front wall of thorax, initial encounter Condition: Good Instructions: ED Head Injury Closed, ED Contusion Rib Follow-Up: Denice Ring DO [Primary Care Provider] - Within 1 week Comments: Please stop the aspirin for the next 3 days. Return if you worsen. Follow-up with your doctor for further care. Your defibrillator did not show any abnormalities over the past [address] 1. Interval hemorrhage within the basal cistern/quadrigeminal plate cisterns as above. No intraventricular hemorrhage is identified. 2. Left frontal scalp hematoma. 3. Atrophy and chronic microvascular ischemic changes are present. Discharge Date/Time: 01/06/21 21:37
[2021-01-06 20:38] LABS: B. PARAPERTUSSIS- RESP PCR PAN NOT DETECTED; B. PERTUSSIS- RESP PCR PANEL NOT DETECTED; C. PNEUMONIAE- RESP PCR PANEL NOT DETECTED; CORONAVIRUS 229E-RESP PCR NOT DETECTED; CORONAVIRUS HKU1-RESP PCR NOT DETECTED; CORONAVIRUS NL63-RESP PCR NOT DETECTED; CORONAVIRUS OC43-RESP PCR NOT DETECTED; HUMAN METAPNEUMOVIRUS NOT DETECTED; INFLUENZA A- RESP PCR PANEL NOT DETECTED; INFLUENZA B - RESP PCR PANEL NOT DETECTED; M. PNEUMONIAE- RESP PCR PANEL NOT DETECTED; PARAINFLUENZA VIRUS 1 NOT DETECTED; PARAINFLUENZA VIRUS 2 NOT DETECTED; PARAINFLUENZA VIRUS 3 NOT DETECTED; PARAINFLUENZA VIRUS 4 NOT DETECTED; RHINOVIRUS/ENTEROVIRUS NOT DETECTED; RSV- RESP PCR PANEL NOT DETECTED; SARS-CoV-2 -RESP PCR PANEL NOT DETECTED
[2021-01-06] MEDS ORDERED: ACETAMINOPHEN 325 MG TABLET PO STA (20:42)
[2021-01-07 03:04] VITALS: BP 134/74
== END 2021-01-06 21:37 | disposition home or self-care (01) ==
LOC: ED 16:53
DX: S09.90XA Unspecified injury of head, initial encounter (principal); S20.212A Contusion of left front wall of thorax, initial encounter; W19.XXXA Unspecified fall, initial encounter; Y92.009 Unspecified place in unspecified non-institutional (private) residence as the place of occurrence of the external cause; I60.9 Nontraumatic subarachnoid hemorrhage, unspecified; I10 Essential (primary) hypertension; Z95.0 Presence of cardiac pacemaker; Z79.82 Long term (current) use of aspirin; Z66 Do not resuscitate; Z20.822 Contact with and (suspected) exposure to COVID-19
CPT/HCPCS: 36415; 70450; 71101; 72125; 80053; 84484; 85025; 85610; 85730; 87631; 93005; 99284; 99285; A9270; 0202U

== ENCOUNTER 2021-05-23 11:37 | Outpatient (CLI) | payer MEDICARE, OTHER ==
[2021-05-23 18:26] LABS: BASOPHILS # (AUTO) 0.1 10^3/uL (0.0-0.1); EOSINOPHILS # (AUTO) 0.2 10^3/uL (0.0-0.7); EOSINOPHILS % (AUTO) 2.2 %; HCT - HEMATOCRIT 46.6 % (37.0-47.0); HGB - HEMOGLOBIN 14.8 g/dL (12.0-16.0); LYMPHOCYTES # (AUTO) 1.5 10^3/uL (1.5-3.5); LYMPHOCYTES % (AUTO) 15.9 %; MEAN CORPUSCULAR HGB CONC 31.8 g/dL (32.0-36.0); MEAN CORPUSCULAR VOLUME 97.7 fL (81.0-99.0); MEAN PLATELET VOLUME 10.1 fL (7.9-10.8); MONOCYTES # (AUTO) 0.7 10^3/uL (0.0-1.0); MONOCYTES % (AUTO) 7.8 %; NEUTROPHILS # (AUTO) 6.8 10^3/uL (1.5-6.6); NEUTROPHILS % (AUTO) 72.8 %; PLT - PLATELET COUNT 235 10^3/uL (130-450); RED BLOOD COUNT 4.77 10^6/uL (4.20-5.40); RED CELL DISTRIBUTION WIDTH 13.4 % (12.0-15.0); WHITE BLOOD COUNT 9.4 x10^3/uL (4.8-10.8)
[2021-05-23 18:40] LABS: ALBUMIN 4.3 g/dL (3.2-5.5); ALBUMIN/GLOBULIN RATIO 1.3 (1.0-2.2); BILIRUBIN,TOTAL 0.6 mg/dL (0.2-1.0); CALCIUM 9.9 mg/dL (8.5-10.3); CREATININE 0.5 mg/dL (0.4-1.0); POTASSIUM 4.5 mmol/L (3.5-5.0); TOTAL PROTEIN 7.7 g/dL (6.7-8.2)
[2021-05-23 19:15] LABS: THYROID STIMULATING HORMONE 23.01 uIU/mL (0.34-5.60)
[2021-05-23 19:17] LABS: FREE T4 (FREE THYROXINE) 0.7 ng/dL (0.58-1.64)
== END 2021-05-23 11:38 | disposition home or self-care (01) ==
LOC: LAB.N 11:37
PROVIDERS: ATTEND Family Medicine
DX: I50.9 Heart failure, unspecified (principal); E03.9 Hypothyroidism, unspecified; Z95.810 Presence of automatic (implantable) cardiac defibrillator
CPT/HCPCS: 36415; 80053; 84439; 84443; 85025

== ENCOUNTER 2021-05-30 13:59 | Outpatient (CLI) | payer MEDICARE, OTHER | END 2021-05-30 14:00 | disposition E | LOC: EMS 13:59 | DX: I46.9 Cardiac arrest, cause unspecified (principal) ==